=== PATIENT | female | born 2000 | race Caucasian/White ===

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

== ENCOUNTER 2020-06-13 12:24 | Emergency (ER) | payer MEDICAID, SELFPAY ==
[2020-06-13 12:34] VITALS: BP 132/86; PULSE 88; RESP 14; TEMP 36.8; O2SAT 100
--- NOTE | 2020-06-13 12:45 | DI.CT_ITS ---
EXAM: CT RENAL COLIC WO INDICATION: Right flank pain. COMPARISON: CT CT ABDOMEN PELVIS W from 08/10/2018 TECHNIQUE: CT examination was performed without contrast administration. FINDINGS: Images obtained through the lung bases are unremarkable. Visualized portions of the liver and splee n appear intact. Visualized portions of the pancreas are unremarkable. Gallbladder and bile ducts are CT normal. Abdominal aorta is of normal diameter. No significant abdominal wall hernia. No significant abdominal or pelvic adenopathy. Appendix is visualized and appears normal. There is no evidence of diverticulitis or bowel obstructi on. Adrenals appear normal bilaterally. The kidneys are normal in size and shape. There is no evidence of a renal mass, hydronephrosis, or n ephrolithiasis. No ureteral dilatation or calcification identified. Urinary bladder is Unremarkable in appearance. The digital designer structures are unremarkable as visualized. Is a small quantity free fluid in the pelvis whic h is nonspecific. IMPRESSION: Small quantity of free pelvic fluid noted, nonspecific. No urinary tract calcification or obstruction. RADIATION DOSE DELIVERED: 527.86mGy.cm Total DLP
[2020-06-13 12:53] LABS: Bilirubin Negative (Negative); Blood Trace-intact (Negative); Clarity Clear (Clear); Glucose Negative (Negative); Ketones Negative (Negative); Leukocyte Esterase Negative (Negative); Nitrite Negative (Negative); Specific Gravity 1.025 (1.005-1.025); Urobilinogen 0.2 EU/dL (Up TO 0.2); pH 8.5 (5-8)
[2020-06-13 13:05] LABS: Bacteria Rare HPF (Negative); C & S Indicated? No; Casts Negative LPF (Negative); Crystals Negative HPF (Negative); Epithelial Cells Few HPF (Negative); Mucus Negative (Negative); WBC 0-2 HPF (0-5)
--- NOTE | 2020-06-13 13:22 | ED.GENADUL_ITS ---
Discharge Plan Disposition Patient Disposition: HOME Condition: Stable Discharge Details Clinical Impression: Flank pain Primary Care Provider: None,None ED Provider: Dawna Clay Home Meds and New Rx's Prescriptions: No Action ibuprofen [Motrin IB] 200 MG tablet 200 mg PO PRN PRNRF: 0 acetaminophen [Tylenol Extra Strength] 500 MG tablet 500 mg PO PRN PRNRF: 0 biotin 5,000 mcg Tablet, Sublingual 5,000 mcg SUBLINGUAL RF: 0 Discharge Instructions Instructions: Flank Pain (ED) Additional Instructions: Follow up with primary care provider in 3-5 days. Return to ED sooner if any worsening or concerns. Increase oral fluids. Please take Tylenol or Ibuprofen with food every 4-6 hours as needed for pain and swelling. Today's CT showed little bit of fluid in your pelvis but no kidney stone. This may indicate a ruptured ovarian cyst or other etiology. Return to the ED for any worsening pain, fever, nausea vomiting diarrhea or any concerns. Stand Alone Forms: Work Release Discharge Data Discharge Date/Time-TO BE ENTERED AT DEPARTURE: 06/13/20 14:18 Medical Decision Making 19-year-old female presents to the ED with chief complaint of right flank pain which radiates around to the right lower quadrant which has been present for approximately 5 days. Associated with increased frequency of urination and dysuria. Denies any nausea vomiting diarrhea. No fever. She has been taking ibuprofen with little to no relief. FINDINGS: Images obtained through the lung bases are unremarkable. Visualized portions of the liver and spleen appear intact. Visualized portions of the pancreas are unremarkable. Gallbladder and bile ducts are CT normal. Abdominal aorta is of normal diameter. No significant abdominal wall hernia. No significant abdominal or pelvic adenopathy. Appendix is visualized and appears normal. There is no evidence of diverticulitis or bowel obstruction. Adrenals appear normal bilaterally. The kidneys are normal in size and shape. There is no evidence of a renal mass, hydronephrosis, or nephrolithiasis. No ureteral dilatation or calcification identified. Urinary bladder is Unremarkable in appearance. The sports physician structures are unremarkable as visualized. Is a small quantity free fluid in the pelvis which is nonspecific. IMPRESSION: Small quantity of free pelvic fluid noted, nonspecific. No urinary tract calcification or obstruction. Urinalysis shows trace blood 5-10 RBCs, no leukocytes no nitrites, discussed CT results with patient who verbalized understanding. Patient was given ibuprofen prior to discharge. Instructed to follow-up with PCP. Patient has no PCP, placed on care management follow-up list. This text was generated using [employer] dictation system, please disregard any oddities of phrase or misspellings. HPI General Mode of arrival: ambulatory . Date/Time Provider Initiated Documentation: 06/13/20 12:50 . Limitations to Documentation: no limitations . Information obtained by: patient . HPI Narrative: 19-year-old female presents to the ED with chief complaint of right flank pain which radiates around to the right lower quadrant which has been present for approximately 5 days. Associated with increased frequency of urination and dysuria. Denies any nausea vomiting diarrhea. No fever. She has been taking ibuprofen with little to no relief. Related Data Home Medications Medication Instructions Recorded Confirmed ibuprofen [Motrin Ib] 200 mg PO PRN PRN 02/10/13 06/13/20 acetaminophen [Tylenol Extra 500 mg PO PRN PRN 12/21/15 06/13/20 Strength] biotin 5,000 mcg SUBLINGUAL 06/13/20 Allergies Allergy/AdvReac Type Severity Reaction Status Date / Time No Known Allergies Allergy Unverified 06/13/20 12:38 General Stated Complaint: FlankPain MARIYA: 3 Review of Systems Narrative: Constitutional: Negative for weight loss, alert and oriented, well groomed, normal body habitus, appears comfortable. HEENT: Denies trauma, headaches, blurry vision, nasal discharge, sore throat, trouble swallowing. Chest: Denies chest pain, palpitations, irregular rhythm, hypertension. Respiratory: Denies Shortness of breath, cough, hemoptysis. GI: Denies nausea, vomiting, diarrhea, constipation. Positive abdominal pain : Denies rectal bleeding. Positive dysuria and flank pain Neuro: Denies dizziness, blurry vision, weakness, syncope, headache or facial numbness. Hematologic: Denies easy bruising, intolerance to heat or cold, hair loss. [facility] Social History Smoking/Tobacco Use Status: Current every day Smoking risk assessment performed?: Yes Alcohol Intake: never Drug use: Occasionally Substance use type: marijuana Do you feel safe at home: Yes Do you feel safe in your relationship?: Yes Exam Narrative Exam Narrative: Constitutional: Alert and oriented x3. Appears stated age. Normal body habitus. Head: Normocephalic, no trauma. Eyes: Pupils PERRLA, Red reflex noted, EOM's intact. Eyelids symmetrical without lesions, discharge, or swelling. ENT: Bilateral TM's WNL, External ear normal to inspection, no mastoid TTP, swelling, or erythema, Nasal turbinates WNL, no nasal discharge. Normal dentition, Posterior pharynx WNL, no exudate. Chest: RRR, Normal S1, S2, distal pulses intact. Resp: Lungs clear to auscultation bilaterally, no wheezes, rales, or rhonchi. Musculoskeletal: Normal gait, 5/5 strength to all four extremities. Skin: No suspicious rashes or lesions. Capillary refill less than 2 sec. Neurologic: Cranial nerves II-XII intact. Alert and oriented x 3. DTR's intact. Hematologic/Lymphatic: No ecchymosis, no lymphadenopathy. Course Vital Signs Vital signs: Vital Signs Temperature 36.8 C 06/13/20 12:34 Pulse 88 06/13/20 12:34 Respiratory Rate 14 06/13/20 12:34 Blood Pressure 132/86 06/13/20 12:34 Pulse Oximetry 100 06/13/20 12:34 Temperature 36.8 C 06/13/20 12:34 Pulse 88 06/13/20 12:34 Respiratory Rate 14 06/13/20 12:34 Respiratory Effort Non-Labored 06/13/20 12:37 Blood Pressure 132/86 06/13/20 12:34 Blood Pressure Position Sitting 06/13/20 12:34 Pulse Oximetry 100 06/13/20 12:34 Oxygen Delivery Method Room Air 06/13/20 12:34 Oxygen Flow Rate 0 06/13/20 12:34 Pain Level 6 06/13/20 12:34 Lab/Test Results Lab/Test Results: Laboratory Tests Range/Units 06/13/20 12:43 Urine Color (Yellow) Yellow Urine Clarity (Clear) Clear Urine pH (5-8) 8.5 H Ur Specific [place] (1.005-1.025) 1.025 Urine Protein (Negative) mg/dL Negative Urine Ketones (Negative) mg/dL Negative Urine Blood (Negative) Trace-intact H Urine Nitrite (Negative) Negative Urine Bilirubin (Negative) Negative Urine Urobilinogen (Up TO 0.2) EU/dL 0.2 Ur Leukocyte Esterase (Negative) Negative Urine RBC (0-2) HPF 5-10 H Urine WBC (0-5) HPF 0-2 Ur Epithelial Cells (Negative) HPF Few Urine Crystals (Negative) HPF Negative Urine Bacteria (Negative) HPF Rare Urine Casts (Negative) LPF Negative Urine Mucus (Negative) Negative Ur Culture Indicated? No Urine Glucose (Negative) mg/dL Negative POC- Test(urine) Negative
[2020-06-13 14:09] VITALS: BP 104/70; PULSE 70; RESP 16; O2SAT 100
--- NOTE | 2020-06-13 14:11 | NUR.NOTE ---
Nursing Note: Referral for Care Management to get PCP for patient follow up from ED. Bettye Davis
[2020-06-13] MEDS: Ibuprofen 600 MG TAB PO (14:14)
--- NOTE | 2020-06-14 16:23 | CMPROGNOTE_ITS ---
- If Service Date Differs Date of service: 06/14/20 Time of Service: 16:25 Care Management Progress Note Jacqueline is seen in the ED on 06/13/20 for flank pain. ED provider requests that CM help her obtain a follow up appointment and establish care with a PCP. A review of her chart reveals she was formerly seen at [facility]. CM contacts the [facility] and is told that Jacqueline is still a patient at their clinic. A follow up appointment is scheduled for Jacqueline with Rene Christianson DNP, [facility], on Saturday, May 15, 2020. Jacqueline has been made aware of the appointment. Her medical chart at [facility] is also updated to reflect Rene Christianson DNP, FNP-C, as her PCP.
== END 2020-06-13 14:18 | disposition home or self-care (01) ==
PROVIDERS: Emergency Provider Registered Nurse Emergency; PCP Nurse Practitioner Family
DX: M54.5 Low back pain (principal); R10.31 Right lower quadrant pain; R30.0 Dysuria
CPT/HCPCS: 81025; 99284; 74176; 81003; 81015

== ENCOUNTER 2020-08-29 14:37 | Outpatient (REF) | payer MEDICAID, SELFPAY ==
[2020-08-29 18:16] LABS: Abs Immature Grans 0.02 10^3/uL (0.0-0.06); Absolute Basophil Count 0.11 10^3/uL (0.0-0.2); Absolute Eosinophil Count 0.04 10^3/uL (0.0-0.7); Absolute Lymphocyte Count 2.22 10^3/uL (1.2-3.4); Absolute Monocyte Count 0.59 10^3/uL (0.1-0.8); Absolute Neutrophil Count 3.77 10^3/uL (1.2-6.7); Basophils % 1.6; Eosinophils % 0.6; HCT 45.8 % (36.0-46.0); HGB 15.3 g/dL (11.2-15.7); Immature Grans % 0.3; Lymphocytes % 32.9; MCH 30.9 pg (27.0-33.0); MCHC 33.4 % (32.0-36.0); MCV 92.5 fL (80-95); MPV 10.3 fL (8.0-11.0); Monocytes % 8.7; Neutrophils % 55.9; Nucleated RBC 0 %; Platelet Count 257 10^3/uL (130-400); RBC 4.95 10^6/uL (3.93-5.22); RDW 11.8 % (11.7-14.6); RDW-SD 40.4 fL; WBC 6.75 10^3/uL (4.4-10.8)
[2020-08-29 18:34] LABS: ALT 23 U/L (14-59); AST 12 U/L (15-37); Albumin 4.3 g/dL (3.4-5.0); Alkaline Phosphatase 53 U/L (46-116); Amylase 59 U/L (25-115); Anion Gap 6.5 mmol/L (3-11); BUN 8 mg/dL (7-18); Bilirubin, Total 0.6 mg/dL (0.2-1.0); CO2 27.5 mmol/L (21.0-32.0); CREATININE 0.75 mg/dL (0.55-1.02); Calcium 9.2 mg/dL (8.5-10.1); Chloride 101 mmol/L (98-107); Glucose 86 mg/dL (74-106); Lipase 70 U/L (73-393); Potassium 4.3 mmol/L (3.5-5.1); Sodium 135 mmol/L (136-145); Total Protein 7.6 g/dL (6.4-8.2)
[2020-08-31 11:28] LABS: Hepatitis C Ab w Rflx HCV PCR Negative (Negative)
[2020-09-02 09:31] LABS: HIV-1/2 Ag & Ab Screen Negative (Negative)
== END 2020-08-29 14:57 ==
LOC: NCHCN 14:37
PROVIDERS: PCP Nurse Practitioner Family; Visit Provider Nurse Practitioner Family
DX: R10.11 Right upper quadrant pain (principal); Z11.4 Encounter for screening for human immunodeficiency virus [HIV]; Z11.59 Encounter for screening for other viral diseases
CPT/HCPCS: 80053; 83690; 86803; 87389; 82150; 85025

== ENCOUNTER 2020-10-18 01:03 | Outpatient (CLI) | payer MEDICAID, SELFPAY ==
--- NOTE | 2020-10-18 | DI.US_ITS ---
EXAM: US ABDOMEN INDICATION: RUQ ABD PAIN, R10.11 COMPARISON: US US PELVIS TRANSVAGINAL from 09/28/2019 TECHNIQUE: Ultrasound abdomen performed using standard protocol FINDINGS: Abdominal ultrasound was performed according to the usual protocol. The liver is normal in size and shape. No focal hepatic lesion seen. There is no evidence of cholelithiasis or biliary dilatation. No gallbladder wall thickening or peric holecystic fluid collection. Pancreas appears intact as visualized. Spleen is unremarkable in appearance with no focal lesion. Kidneys are normal in size and shape. No renal mass, hydronephrosis, or nephrolithiasis. Abdominal aorta and IVC are of normal diameter. IMPRESSION: Negative abdominal ultrasound .
== END 2020-10-18 01:23 ==
PROVIDERS: PCP Nurse Practitioner Family; Visit Provider Nurse Practitioner Family
DX: R10.11 Right upper quadrant pain (principal)
CPT/HCPCS: 76700

== ENCOUNTER 2020-10-19 12:03 | Outpatient (CLI) | payer MEDICAID, SELFPAY ==
[2020-10-19 12:49] LABS: HCG Quant, Pregnancy 5 mIU/mL (1-3)
== END 2020-10-19 12:04 | disposition home or self-care (01) ==
LOC: LBO 12:05
PROVIDERS: PCP Nurse Practitioner Family; Visit Provider Nurse Practitioner Women's Health
DX: N92.6 Irregular menstruation, unspecified (principal)
CPT/HCPCS: 36415; 84702

== ENCOUNTER 2020-10-24 14:08 | Outpatient (CLI) | payer MEDICAID, SELFPAY ==
[2020-10-24 14:48] LABS: HCG Quant, Pregnancy 1 mIU/mL (1-3)
== END 2020-10-24 14:09 | disposition home or self-care (01) ==
LOC: LBO 14:09
PROVIDERS: PCP Nurse Practitioner Family; Visit Provider Nurse Practitioner Women's Health
DX: N92.6 Irregular menstruation, unspecified (principal); Z32.00 Encounter for pregnancy test, result unknown
CPT/HCPCS: 36415; 84702

== ENCOUNTER 2020-12-27 18:26 | Emergency (ER) | payer MEDICAID, SELFPAY ==
[2020-12-27 18:32] VITALS: BP 131/88; PULSE 108; RESP 18; TEMP 37.1; O2SAT 100
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
[2020-12-27] MEDS: Omnipaque 350 MG/ML 100 ML BTL IV (19:23)
[2020-12-27 19:24] LABS: Abs Immature Grans 0.01 10^3/uL (0.0-0.06); Absolute Basophil Count 0.07 10^3/uL (0.0-0.2); Absolute Eosinophil Count 0.09 10^3/uL (0.0-0.7); Absolute Lymphocyte Count 1.95 10^3/uL (1.2-3.4); Absolute Monocyte Count 0.59 10^3/uL (0.1-0.8); Absolute Neutrophil Count 3.64 10^3/uL (1.2-6.7); Basophils % 1.1; Eosinophils % 1.4; HCT 40.3 % (36.0-46.0); HGB 13.7 g/dL (11.2-15.7); Immature Grans % 0.2; Lymphocytes % 30.7; MCH 30.9 pg (27.0-33.0); MPV 9.7 fL (8.0-11.0); Monocytes % 9.3; Neutrophils % 57.3; Nucleated RBC 0 %; Platelet Count 216 10^3/uL (130-400); RBC 4.43 10^6/uL (3.93-5.22); RDW 11.9 % (11.7-14.6); RDW-SD 39.9 fL; WBC 6.35 10^3/uL (4.4-10.8)
[2020-12-27] MEDS: Normal Saline - Diluent 50 ML VIAL IV (19:24)
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
[2020-12-27 19:45] LABS: Lipase 41 U/L (73-393)
[2020-12-27] MEDS: Ondansetron 4 MG/2 ML VIAL IVP (19:47)
[2020-12-27] MEDS: ACETAMINOPHEN 1,000 MG/100 ML BTL 400 MG IVPB (19:47)
[2020-12-27] MEDS: Normal Saline 1,000 ML 1000 ML IV (19:47)
[2020-12-27 19:50] LABS: ALT 18 U/L (14-59); AST 12 U/L (15-37); Albumin 4.5 g/dL (3.4-5.0); Alkaline Phosphatase 47 U/L (46-116); Anion Gap 9.1 mmol/L (3-11); BUN 7 mg/dL (7-18); Bilirubin, Total 0.6 mg/dL (0.2-1.0); CO2 26.9 mmol/L (21.0-32.0); CREATININE 0.9 mg/dL (0.55-1.02); Calcium 8.9 mg/dL (8.5-10.1); Chloride 104 mmol/L (98-107); Glucose 92 mg/dL (74-106); Potassium 3.3 mmol/L (3.5-5.1); Sodium 140 mmol/L (136-145); Total Protein 7.8 g/dL (6.4-8.2)
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
== END 2020-12-27 20:20 | disposition home or self-care (01) ==
PROVIDERS: Emergency Provider Physician Assistant; PCP Nurse Practitioner Family
DX: R10.30 Lower abdominal pain, unspecified (principal); R07.89 Other chest pain; T14.8XXA Other injury of unspecified body region, initial encounter; V43.52XA Car driver injured in collision with other type car in traffic accident, initial encounter; W22.11XA Striking against or struck by driver side automobile airbag, initial encounter
CPT/HCPCS: 36415; 74177; 80053; 81025; 83690; 96374; 96375; 99285; 70450; 71260; 72125; 83735; 85025; 99284; J0131; J2405; J3490

== ENCOUNTER 2021-06-05 14:17 | Emergency (ER) | payer MEDICAID, SELFPAY ==
[2021-06-05] VITALS (15 sets, daily range): BP systolic 118–123; BP diastolic 62–74; PULSE 92–120; RESP 15–30; TEMP 36.6; O2SAT 97–100
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
[2021-06-05 14:37] LABS: Abs Immature Grans 0.02 10^3/uL (0.0-0.06); Absolute Basophil Count 0.13 10^3/uL (0.0-0.2); Absolute Eosinophil Count 0.14 10^3/uL (0.0-0.7); Absolute Lymphocyte Count 4.19 10^3/uL (1.2-3.4); Absolute Monocyte Count 0.64 10^3/uL (0.1-0.8); Absolute Neutrophil Count 4.08 10^3/uL (1.2-6.7); Basophils % 1.4; Eosinophils % 1.5; HCT 37.6 % (36.0-46.0); HGB 12.5 g/dL (11.2-15.7); Immature Grans % 0.2; Lymphocytes % 45.5; MCH 30.5 pg (27.0-33.0); MCHC 33.2 % (32.0-36.0); MCV 91.7 fL (80-95); MPV 9.8 fL (8.0-11.0); Neutrophils % 44.4; Nucleated RBC 0 %; Platelet Count 302 10^3/uL (130-400); RDW-SD 40.6 fL
[2021-06-05] MEDS: Omnipaque 350 MG/ML 100 ML BTL IJ (14:44)
[2021-06-05] MEDS: Normal Saline - Diluent 50 ML VIAL IV (14:44)
--- NOTE | 2021-06-05 14:45 | RT.EKG_ITS ---
APPROVED REPORT Exam: Resting ECG Reason for Exam: hypokalemia Patient Location: E HR:102 bpm ECG Measurements Heart Rate 102 AXIS NV 127 P 73 QRSd 86 QRS 19 QT 340 T 50 QTc 442 Conclusion Sinus tachycardia...rate> 99 Atrial premature complex...SV complex w/ short R-R interval Probable left atrial enlargement...P >50mS, <-0.10mV V1
[2021-06-05 14:47] LABS: INR 1.1 (0.9-1.1)
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
[2021-06-05 14:49] LABS: ALT 52 U/L (14-59); AST 53 U/L (15-37); Albumin 3.8 g/dL (3.4-5.0); Alkaline Phosphatase 46 U/L (46-116); Anion Gap 12.3 mmol/L (3-11); BUN 8 mg/dL (7-18); Bilirubin, Total 0.4 mg/dL (0.2-1.0); CO2 24.7 mmol/L (21.0-32.0); Calcium 8.5 mg/dL (8.5-10.1); Chloride 106 mmol/L (98-107); Glucose 128 mg/dL (74-106); Sodium 143 mmol/L (136-145); Total Protein 7.1 g/dL (6.4-8.2)
[2021-06-05 14:50] LABS: Potassium 2.8 mmol/L (3.5-5.1)
--- NOTE | 2021-06-05 14:50 | DI.CT_ITS ---
Exam(s) CT CHEST/ABD/PEL W EXAM: CT CHEST/ABD/PEL W CLINICAL HISTORY: trauma, b/l LQ pain. TECHNIQUE: Imaging Protocol: Axial computed tomography images with coronal and sagittal reformatted images were created and reviewed CONTRAST MATERIAL: Intravenous: Omnipaque 350 Contrast volume:100 ml Oral: None COMPARISON: CT CT CHEST/ABD/PEL W from 12/27/2020 FINDINGS: CHEST: LUNGS: No evidence of lung contusion or pneumothorax nor pleural effusion.. MEDIASTINUM: No evidence of significant mediastinal hematoma. Visualized thyroid unremarkable. CARDIAC: Heart size is normal. There is no pericardial effusion.Thoracic aorta is intact. OSSEOUS: Again noted are adjacent here subacute appearing fractures of the 6th and 7th ribs on the ri ght side, not yet completely healed but previously present on the December 2020 study. No acute fractures evident. ABDOMEN: There is no evidence of mesenteric nor bowel wall hematoma. There is no ascites in the upper abdomen . LIVER: No evidence of a patent laceration or Dinorah hepatic fluid. No ominous a patent lesions. No di latation of intrahepatic ducts. GALLBLADDER/BILIARY: No obvious gallbladder pathology. CBD is not dilated. PANCREAS: No evidence of pancreatic mass nor dilatation of the pancreatic duct. SPLEEN: Spleen is intact. No laceration evident. No perisplenic fluid. Spleen size is normal. Spl enic and portal veins are patent. ADRENALS: There are no significant adrenal masses. KIDNEYS: Kidneys are intact with no evidence of laceration or subcapsular hematomas.. No calculi nor hydronephrosis. No cyst or solid renal masses. ABDOMINAL AORTA: Abdominal aorta is intact. No surrounding hematoma. No aneurysm. LYMPH NODES: There is no retroperitoneal nor paraaortic adenopathy. ABDOMINAL WALL: Umbilical ornament. No evidence of anterior abdominal hernia knee. No inguinal gaby ia. No prominent bruising GI: There is no evidence of bowel obstruction. PELVIS: LYMPH NODES: There is no intrapelvic nor inguinal adenopathy. GI: No evidence of appendicitis.No evidence of sigmoid diverticulitis. URINARY BLADDER: Appears intact REPRODUCTIVE: Uterus size is normal. Ovaries are difficult to locate among the unopacified numerous adjacent bowel loops. There is a moderate amount of fluid in the cul-de-sac noted. This may be fema le physiologic. OSSEOUS: Femur fracture right side noted. Hip is intact. No pelvic fractures. No diastasis of the sacroiliac joints and symphysis pubis. No sacral fractures. No new rib fractures. No compression f ractures. No listhesis. IMPRESSION: 1. Main finding here is in the peripheral aspect field of view and this is a mildly displaced right f emur fracture. No other acute fractures identified. Nonacute right 6th and 7th rib fractures are no oscar which were evident on the December 2020 CT scan. 2. There is a moderate amount of free fluid in the dependent aspect of the pelvis which may be female physiologic, given that there does not appear to be significant organ trauma and no evidence of obvi ous bowel wall nor mesenteric hematoma. 3. No significant acute intrathoracic trauma sequelae. RADIATION DOSE DELIVERED: 791.43mGy.cm Total DLP DATA REPOSITORY: All CT scans at this facility are submitted to the National Radiology Data Registry (NRDR) Dose Index Registry (DIR) with the [employer] (ACR). RADIATION OPTIMIZATION: All CT scans at this facility use at least one of these dose optimization te chniques: automated exposure control; mA and/or kV adjustment per patient size (includes targeted exa ms where dose is matched to clinical indication); or iterative reconstruction.
[2021-06-05] MEDS: Normal Saline 1,000 ML 1000 ML IV (15:36)
[2021-06-05] MEDS: POTASSIUM CHLORIDE 20 MEQ/100 ML BAG 50 MEQ IVPB (15:37)
[2021-06-05] MEDS: fentaNYL 100 MCG/2 ML VIAL 60 MCG IVP (16:33)
== END 2021-06-05 16:43 | disposition short-term general hospital (02) ==
LOC: ER 16:24
PROVIDERS: Emergency Provider Student in an Organized Health Care Education/Training Program; PCP Nurse Practitioner Family
DX: S72.391A Other fracture of shaft of right femur, initial encounter for closed fracture (principal); R10.32 Left lower quadrant pain; R10.31 Right lower quadrant pain; V89.2XXA Person injured in unspecified motor-vehicle accident, traffic, initial encounter; E87.6 Hypokalemia
CPT/HCPCS: 73552; 74177; 80053; 86850; 86900; 86901; 93005; 96361; 96365; 96366; 96375; 99285; 70450; 71260; 72125; 83735; 85025; 85610; 93010; J3010; J3480; J3490

== ENCOUNTER 2021-10-13 01:42 | Outpatient (CLI) | payer MEDICAID, SELFPAY ==
--- NOTE | 2021-10-13 | DI.US_ITS ---
Exam(s) US ABDOMEN EXAM: US ABDOMEN CLINICAL HISTORY: HEPATIC HEMANGIOMA D18.3, TECHNIQUE: Ultrasound of complete upper abdomen performed using standard protocol. COMPARISON: US US ABDOMEN from 10/18/2020 FINDINGS: There is no ascites evident. LIVER: There are no hepatic lesions evident nor obvious dilatation of intrahepatic ducts. GALLBLADDER/BILIARY: There are no gallstones. No gallbladder wall edema nor pericholecystic fluid. The common hepatic duct isnot dilated, measuring 3-4mm at the level of lexii hepatis. PANCREAS: There is no evidence of pancreatic mass nor dilatation of the pancreatic duct. SPLEEN: The spleen is not enlarged and there are no intrasplenic lesions evident. KIDNEYS:Kidneys exhibit normal size with no evidence of solid mass, calculus, nor hydronephrosis. No cortical cysts evident. ABDOMINAL AORTA: There is no evidence of abdominal aortic aneurysm. IVC: Normal diameter where visualized. IMPRESSION: 1. No evidence of cholelithiasis nor dilatation of the biliary tree. 2. No other significant ultrasound findings in the upper abdomen. 3. There is no ascites. DATA REPOSITORY:
--- NOTE | 2021-10-13 | DI.CT_ITS ---
Exam(s) CT CHEST WO EXAM: CT CHEST WO CLINICAL HISTORY: PULMONARY NODULE R91.1. TECHNIQUE: Multi planar reconstructions were performed. CONTRAST MATERIAL: None COMPARISON: CT CT CHEST/ABD/PEL W from 06/05/2021 FINDINGS: CHEST: LUNGS: No infiltrates nor pleural effusions. No significant right lung nodules. There are adjacent healing fractures of the right 5th, 6th, and 7th ribs, nondisplaced and almost completely healed. Th ere are no acute fractures evident. In the opposite-left lung there is a posteriorly located subtle pleural based infiltrate measuring 6 x 3 millimeter, this in the superior segment of the left lower lobe and unchanged from the 06/05/2021 study and not associated with overlying rib destruction nor pleural effusion. There are no addition al similar findings in either lung. There are no significant focal findings in the trachea and lamberto tem bronchi. MEDIASTINUM: There is no obvious hilar adenopathy nor subcarinal adenopathy. There is density in the anterior mediastinal fat retrosternal region noted which is probably remnant thymus.. No evidence o f acute sternal fracture. There is an osteophytic density measuring 5 x 4 millimeter is behind the u pper right sternum, unchanged. This does not appear post trauma. Visualized thyroid unremarkable.No obvious axillary adenopathy CARDIAC: Heart size is normal. There is no pericardial effusion.Caliber of the thoracic aorta is wit hin normal limits. VISUALIZED UPPER ABDOMEN:No significant findings. No adrenal masses. No splenomegaly. OSSEOUS: No significant osseous lesions.Healing right-sided rib fractures as described above.. IMPRESSION: 1. Compared to the prior CT scan of 06/05/2021 there has been further callus formation-healing in the nondisplaced fractures of the right 5th, 6th, and 7th ribs. There are no new fractures identified 2. There is an unchanged pleural based 6 x 3 millimeter noncalcified density posteriorly over the sup erior segment of the left lower lobe. There is no associated overlying rib destruction or pleural ef fusion or other significant pulmonary parenchymal findings. 3. Anterior mediastinal fat density noted which is probably remnant thymus in this age group. RADIATION DOSE DELIVERED: 410.22mGy.cm Total DLP DATA REPOSITORY: All CT scans at this facility are submitted to the National Radiology Data Registry (NRDR) Dose Index Registry (DIR) with the [employer] (ACR). RADIATION OPTIMIZATION: All CT scans at this facility use at least one of these dose optimization te chniques: automated exposure control; mA and/or kV adjustment per patient size (includes targeted exa ms where dose is matched to clinical indication); or iterative reconstruction.
== END 2021-10-13 02:02 ==
PROVIDERS: PCP Nurse Practitioner Family; Visit Provider Nurse Practitioner
DX: R91.1 Solitary pulmonary nodule (principal); D18.03 Hemangioma of intra-abdominal structures; R91.8 Other nonspecific abnormal finding of lung field
CPT/HCPCS: 71250; 76700

== ENCOUNTER 2022-07-03 16:06 | Outpatient (CLI) | payer MEDICAID, SELFPAY ==
[2022-07-05 17:11] LABS: Chlamydia Result Negative (Negative); GC Result Negative (Negative)
== END 2022-07-03 16:07 | disposition home or self-care (01) ==
LOC: LBO 16:07
PROVIDERS: Visit Provider Obstetrics & Gynecology Gynecology
DX: L65.9 Nonscarring hair loss, unspecified (principal); Z11.3 Encounter for screening for infections with a predominantly sexual mode of transmission
CPT/HCPCS: 36415; 87491; 87591; 84443

== ENCOUNTER 2022-08-23 15:12 | Outpatient (REF) | payer MEDICAID, SELFPAY ==
--- NOTE | 2022-08-23 15:00 | PAPFT_PTH ---
PATIENT: Jacqueline Cheema LOC: [facility] U#:[id number] AGE/SX: 21/F ROOM: RE08/23/[address]: Marilia Stewart : 2000 BED: DIS: 08/23/2022 SPEC #: [id number] RECD: 08/24/22 12:47 STATUS: SAURAV REFaustina #: [id number] JANIE: 08/23/22 15:[address]: Marilia Stewart DEPT: [facility] Cytology RECD BY: Juanita Peraza Tissues: 1 - CX/ENDOCX FOR PAP SMEARS Procedures: PAP THIN PREP/UVM Screening Comments: [id number]
== END 2022-08-23 15:13 | disposition home or self-care (01) ==
LOC: LBN 15:12
PROVIDERS: Visit Provider Obstetrics & Gynecology Gynecology
DX: Z11.51 Encounter for screening for human papillomavirus (HPV) (principal); R87.610 Atypical squamous cells of undetermined significance on cytologic smear of cervix (ASC-US)
CPT/HCPCS: 88142

== ENCOUNTER 2022-09-26 11:59 | Outpatient (CLI) | payer MEDICAID, SELFPAY ==
[2022-09-26 11:20] LABS: HCG Quant, Pregnancy 652 mIU/mL (1-3)
== END 2022-09-26 12:00 | disposition home or self-care (01) ==
PROVIDERS: Visit Provider Obstetrics & Gynecology
DX: O26.851 Spotting complicating pregnancy, first trimester (principal); Z3A.01 Less than 8 weeks gestation of pregnancy
CPT/HCPCS: 36415; 84702

== ENCOUNTER 2022-09-28 15:25 | Outpatient (CLI) | payer MEDICAID, SELFPAY ==
[2022-09-28 15:41] LABS: HCG Quant, Pregnancy 611 mIU/mL (1-3)
== END 2022-09-28 15:26 | disposition home or self-care (01) ==
LOC: LBO 15:25
PROVIDERS: Visit Provider Obstetrics & Gynecology
DX: O26.851 Spotting complicating pregnancy, first trimester (principal)
CPT/HCPCS: 36415; 84702

== ENCOUNTER 2022-09-30 10:23 | Emergency (ER) | payer MEDICAID, SELFPAY ==
[2022-09-30] MEDS: ACETAMINOPHEN 1,000 MG/100 ML BTL 400 MG (11:15)
[2022-09-30] MEDS: Normal Saline 1,000 ML 1000 ML IV (11:15)
[2022-09-30 15:42] LABS: Bilirubin Negative (Negative); Blood Moderate (Negative); Clarity Cloudy (Clear); Glucose Negative (Negative); Ketones Negative (Negative); Leukocyte Esterase Negative (Negative); Nitrite Negative (Negative); Urobilinogen 0.2 mg/dL (Up to 0.2)
[2022-09-30 15:45] LABS: Bacteria Negative HPF (Negative); C & S Indicated? No; Casts Negative LPF (Negative); Crystals Negative HPF (Negative); Epithelial Cells Negative HPF (Negative); Mucus Negative (Negative); RBC >50 HPF (0-2); WBC Negative HPF (0-5)
[2022-09-30 15:48] LABS: AST 19 U/L (15-37); Albumin 4.1 g/dL (3.4-5.0); Alkaline Phosphatase 47 U/L (46-116); Anion Gap 10.7 mmol/L (3-11); BUN 8 mg/dL (7-18); Bilirubin, Total 0.8 mg/dL (0.2-1.0); CO2 26.3 mmol/L (21.0-32.0); CREATININE 0.7 mg/dL (0.55-1.02); Calcium 9.3 mg/dL (8.5-10.1); Chloride 102 mmol/L (98-107); Estimated GFR 125.33 (mL/min/1.73m2); Glucose 93 mg/dL (74-106); Potassium 3.8 mmol/L (3.5-5.1); Sodium 139 mmol/L (136-145); Total Protein 7.5 g/dL (6.4-8.2)
[2022-09-30 15:49] LABS: ALT 26 U/L (14-59); HCG Quant, Pregnancy 664 mIU/mL (1-3)
[2022-09-30 15:50] LABS: Absolute Basophil Count 0.07 10^3/uL (0.0-0.2); Absolute Eosinophil Count 0.09 10^3/uL (0.0-0.7); Absolute Lymphocyte Count 1.63 10^3/uL (1.2-3.4); Absolute Neutrophil Count 2.65 10^3/uL (1.2-6.7); Basophils % 1.4; Eosinophils % 1.8; HCT 39.9 % (36.0-46.0); HGB 13.3 g/dL (11.2-15.7); Lymphocytes % 32.3; MCH 30.2 pg (27.0-33.0); MCHC 33.3 % (32.0-36.0); MCV 91 fL (80-95); MPV 10.1 fL (8.0-11.0); Monocytes % 11.9; Neutrophils % 52.4; Platelet Count 236 10^3/uL (130-400); RDW 11.9 % (11.7-14.6); RDW-SD 39.7 fL; WBC 5.05 10^3/uL (4.4-10.8)
[2022-09-30 15:51] LABS: Immature Grans % 0.2
== END 2022-09-30 14:42 ==
LOC: ER 13:40
PROVIDERS: Emergency Provider Emergency Medicine
DX: O20.8 Other hemorrhage in early pregnancy (principal); R10.32 Left lower quadrant pain; R10.31 Right lower quadrant pain
CPT/HCPCS: 80053; 81025; 86850; 86900; 86901; 96361; 96365; 99284; 81003; 81015; 84702; 85025; 99283; J0131

== ENCOUNTER 2022-10-01 01:39 | Outpatient (CLI) | payer MEDICAID, SELFPAY ==
--- NOTE | 2022-10-01 09:00 | DI.US_ITS ---
Exam(s) US OB 1ST TRIMESTER EXAM: US OB 1ST TRIMESTER CLINICAL HISTORY: abnl in first trimester, O26.91, possible ectopic. TECHNIQUE: Transabdominal and transvaginal pelvic ultrasound was performed using standard protocol. COMPARISON: US US PELVIS TRANSVAGINAL from 09/28/2019 FINDINGS: UTERUS: Position: Anteverted. Size: 7.6 long by 3.6 AP by 5.0 transverse cm Endometrium: 0.6 cm. Normal for patient's menstrual status. No evidence of an intrauterine gestationa l sac is present. Myometrium: Unremarkable. Cervix: Unremarkable. OVARIES: Right: 3 x 2.5 x 2.5 cm Cyst or mass: No suspicious cystic or solid masses. Left: 3.5 x 3.1 x 2.1 cm Cyst or mass: No suspicious cystic or solid masses. There are 3 simple cysts seen on the left ovary. The largest measures 2.4 x 2 x 2 cm. DOPPLER: Color: Symmetric and uniform flow to both ovaries. CUL-DE-SAC: Free fluid: There is a moderate amount of free fluid in the pelvis. Other: In the right adnexa, there is a 3.1 x 2 x 4 cm ???mass???. The findings are suspicious for an enlarged fallopian tube and an ectopic . IMPRESSION: 1. No intrauterine is identified. 2. 3.1 x 2 x 4 cm right adnexal mass. The findings are suspicious for an ectopic , probably tubal. 3. Moderate amount of free fluid in the pelvis. 4. Findings were discussed with Dr. Morales on 10/01/2022. DATA REPOSITORY:
== END 2022-10-01 01:59 ==
PROVIDERS: Visit Provider Obstetrics & Gynecology
DX: N83.292 Other ovarian cyst, left side (principal); R19.09 Other intra-abdominal and pelvic swelling, mass and lump; N83.8 Other noninflammatory disorders of ovary, fallopian tube and broad ligament
CPT/HCPCS: 76801

== ENCOUNTER 2022-10-01 12:13 | Outpatient (CLI) | payer MEDICAID, SELFPAY ==
[2022-10-01 11:56] LABS: Abs Immature Grans 0.01 10^3/uL (0.0-0.06); Absolute Basophil Count 0.05 10^3/uL (0.0-0.2); Absolute Eosinophil Count 0.05 10^3/uL (0.0-0.7); Absolute Lymphocyte Count 1.22 10^3/uL (1.2-3.4); Absolute Monocyte Count 0.58 10^3/uL (0.1-0.8); Absolute Neutrophil Count 2.88 10^3/uL (1.2-6.7); HCT 36.3 % (36.0-46.0); HGB 12.3 g/dL (11.2-15.7); Immature Grans % 0.2; Lymphocytes % 25.5; MCH 30.9 pg (27.0-33.0); MCHC 33.9 % (32.0-36.0); MCV 91 fL (80-95); MPV 9.8 fL (8.0-11.0); Monocytes % 12.1; Neutrophils % 60.2; Platelet Count 218 10^3/uL (130-400); RBC 3.98 10^6/uL (3.93-5.22); RDW 11.9 % (11.7-14.6); RDW-SD 40.1 fL; WBC 4.79 10^3/uL (4.4-10.8)
[2022-10-01 12:21] LABS: ALT 23 U/L (14-59); AST 11 U/L (15-37); Alkaline Phosphatase 46 U/L (46-116); Anion Gap 7.2 mmol/L (3-11); BUN 8 mg/dL (7-18); Bilirubin, Total 0.5 mg/dL (0.2-1.0); CO2 28.8 mmol/L (21.0-32.0); CREATININE 0.7 mg/dL (0.55-1.02); Calcium 9.1 mg/dL (8.5-10.1); Chloride 105 mmol/L (98-107); Estimated GFR 125.33 (mL/min/1.73m2); Glucose 102 mg/dL (74-106); HCG Quant, Pregnancy 995 mIU/mL (1-3); Potassium 4.1 mmol/L (3.5-5.1); Sodium 141 mmol/L (136-145); Total Protein 7.1 g/dL (6.4-8.2)
== END 2022-10-01 12:14 | disposition home or self-care (01) ==
LOC: LBO 12:14
PROVIDERS: Visit Provider Obstetrics & Gynecology
DX: O26.91 Pregnancy related conditions, unspecified, first trimester (principal)
CPT/HCPCS: 36415; 80053; 84702; 85025

== ENCOUNTER 2022-10-01 14:41 | Day surgery (SDC) | payer MEDICAID, SELFPAY ==
[2022-10-01] VITALS (9 sets, daily range): BP systolic 101–140; BP diastolic 54–80; PULSE 73–99; RESP 15–18; TEMP 36.5–36.8; O2SAT 99–100; BMI 26.6
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
[2022-10-01] MEDS: Lactated Ringers 1,000 ML 125 ML IV (15:07)
[2022-10-01 15:21] LABS: Abs Immature Grans 0.01 10^3/uL (0.0-0.06); Absolute Basophil Count 0.06 10^3/uL (0.0-0.2); Absolute Eosinophil Count 0.07 10^3/uL (0.0-0.7); Absolute Neutrophil Count 3.17 10^3/uL (1.2-6.7); Eosinophils % 1.2; HCT 37.8 % (36.0-46.0); HGB 12.6 g/dL (11.2-15.7); Immature Grans % 0.2; Lymphocytes % 29.3; MCH 30.2 pg (27.0-33.0); MCHC 33.3 % (32.0-36.0); MCV 91 fL (80-95); MPV 9.6 fL (8.0-11.0); Monocytes % 13.8; Neutrophils % 54.5; Platelet Count 227 10^3/uL (130-400); RBC 4.17 10^6/uL (3.93-5.22); RDW 11.9 % (11.7-14.6); RDW-SD 39.3 fL; WBC 5.81 10^3/uL (4.4-10.8)
[2022-10-01] MEDS: Bupivacaine 0.25% Pres-Free 30 ML VIAL (16:21)
--- NOTE | 2022-10-01 16:26 | FALL_PTH ---
PATIENT: Jacqueline Cheema LOC: [facility] U#:[id number] AGE/SX: 22/F ROOM: RE10/01/[address]: María Morales DO : 2000 BED: DIS: 10/01/2022 SPEC #: [id number] RECD: 10/01/22 17:21 STATUS: SAURAV REQ #: [id number] JANIE: 10/01/22 16:[address]: María Morales DEPT: Surgical Specimen RECD BY: Juanita Peraza ENTERED: 10/01/22 17:23 SP TYPE: Fall OTHR DR: Unknown,Unknown Tissues: 1 - FALLOPIAN TUBE (ECTOPIC) Procedures: GROSS AND MICRO LEVEL 4 Comments: [id number]
--- NOTE | 2022-10-01 16:47 | ROE_ITS ---
Date of service: 10/01/22 Time of Service: 16:47 Operative Note Operative Note DATE OF PROCEDURE: 10/01/22 PRE-OP DIAGNOSIS: Suspected ectopic POST-OP DIAGNOSIS: same Hemoperitoneum with right ectopic . Endometriosis in the cul-de-sac, anterior and posterior. Adhesions of the omentum to the left ovary. PROCEDURE: Operative laparoscopy with right salpingectomy for ectopic SURGEON: María Morales SUPERVISOR INSPECTION ROOM: Shaina Alvarez ANESTHESIA TYPE: Local By Surgeon and General LMA/ETT Refer to Anesthesia Record ESTIMATED BLOOD LOSS: 100 PATHOLOGY: other (Right fallopian tube with ectopic) COMPLICATIONS: None Patient was transported to: PACU Patient's condition: stable Indications: Abnormally rising quantitative hCG. Ultrasound consistent with right ectopic , and moderate fluid in the pelvis. Findings: Uterus with adhesions to the anterior abdominal wall. Endometriosis implants in the posterior cul-de-sac. Dilated right fallopian tube with ectopic and proximal obstruction. Normal-appearing left fallopian tube. 2 cm left ovarian cyst. Moderate hemoperitoneum, approximately 200 cc. Procedure Description: After full informed consent was obtained and IV access had been established patient was taken the operating suite. She was placed in the dorsal supine position and endotracheal intubation performed for the administration of general anesthesia with ease. She was then placed in the modified dorsolithotomy position prepped and draped in the usual sterile fashion. Pneumatic compression stockings were placed for DVT prophylaxis. Yu catheter was inserted for continuous bladder drainage. Vaginal preparation was performed. A speculum was inserted into the posterior vaginal vault and a single-tooth tenaculum used to grasp the cervix and Hulka uterine manipulator placed within. Tenaculum and speculum were then removed and attention was returned to the abdomen. After infiltration with quarter percent Marcaine at the umbilical incision vertical umbilical incision was made. The anterior narinder wall was elevated with sharp towel clips and a varies needle used to insert directly into the abdomen. Pneumoperitoneum created with CO2 gas to a maximum pressure of 15 mmHg. At this point a 12 mm Optiview trocar site was placed under direct visualization into the abdomen. On inspection there was noted to be a moderate hemoperitoneum and a left ovarian cyst, along with a markedly dilated right fallopian tube consistent with ectopic. A second and third right and left lower quadrant trocar site were placed after infiltration with quarter percent Marcaine. The uterus was then elevated and the abdomen was inspected. There is noted to be adhesions of the lower segment to the anterior abdominal wall and endometriosis implants in the posterior cul-de-sac. There were thin filmy adhesions of the omentum to the left adnexa. The right adnexa was free however markedly dilated. This tube was then elevated and cautery transected for removal. Decision was made to remove the fallopian tube in its entirety due to the very narrow proximal obstruction and marked dilation of the tube itself. Left fallopian tube appears normal. At this point the abdomen was irrigated with copious amounts of normal saline and under low pressure at the excisional site visualized and found to be hemostatic. After irrigation with copious amounts of normal saline the procedure was then terminated. All ports were removed from the abdomen after pneumoperitoneum was released. The fascial incision was closed using 0 Vicryl suture in a simple interrupted fashion. Skin edge was reapproximated with 4-0 undyed Monocryl and Steri-Strips and sterile dressings were placed. Hulka manipulator and Yu catheter were removed. Patient returned to the dorsal supine position and woke from anesthesia with ease. She was taken the recovery room in stable condition. EBL: 200 ml including hemoperitoneum Complications: None apparent Pathology: Right fallopian tube for examination Fluids: Crystalloid per anesthesia
--- NOTE | 2022-10-01 17:30 | W.ANESPOSTOP ---
Postoperative Evaluation Date, Time and Location Date Performed: 10/01/22 Time Performed: 17:30 Patient Location: PACU Vital Signs Most Recent Imported Vital Signs: Most Recent Vital Signs Temp Pulse Resp BP Pulse Ox 36.5 C 86 16 108/67 100 10/01/22 17:10 10/01/22 17:10 10/01/22 17:10 10/01/22 17:10 10/01/22 17:10 Pain Score Most Recent Pain Score: Most Recent Pain Score Pain Level 0 10/01/22 17:10 Assessment Mental Status: Arousable with meaningful communication Airway and Respiratory Function: Patent airway with normal (patient baseline) respiratory exam Cardiovascular Function: Hemodynamically Stable Hydration Status: Adequately Hydrated Nausea & Vomiting: No Nausea or Vomiting Pain: Pain is tolerable per patient Peripheral Nerve Block: Patient did not receive a nerve block
== END 2022-10-01 19:09 | disposition home or self-care (01) ==
PROVIDERS: Visit Provider Obstetrics & Gynecology
PROC: (CPT 58661; principal; 2022-10-01 14:30)
DX: O00.101 Right tubal pregnancy without intrauterine pregnancy; K66.1 Hemoperitoneum; N80.319 Endometriosis of the anterior cul-de-sac, unspecified depth; N80.329 Endometriosis of the posterior cul-de-sac, unspecified depth; N83.202 Unspecified ovarian cyst, left side
CPT/HCPCS: 59151; 86850; 86900; 86901; 88305; 85025; J0131; J1100; J1885; J2250; J2405; J2704; J3475

== ENCOUNTER 2022-11-20 12:21 | Outpatient (REF) | payer MEDICAID, SELFPAY ==
--- NOTE | 2022-11-20 11:40 | CER_PTH ---
PATIENT: Jacqueline Cheema LOC: [facility] U#:[id number] AGE/SX: 22/F ROOM: RE11/20/[address]: María Morales DO : 2000 BED: DIS: 11/20/2022 SPEC #: [id number] RECD: 11/20/22 17:24 STATUS: SAURAV REQ #: [id number] JANIE: 11/20/22 11:[address]: María Morales DEPT: Surgical Specimen RECD BY: Juanita Peraza Tissues: 1 - CERVICAL BIOPSY 2 - ENDOCERVICAL BX/CURRETTE Procedures: GROSS AND MICRO LEVEL 4 Comments: [id number]
== END 2022-11-20 12:22 | disposition home or self-care (01) ==
LOC: LBN 12:21
PROVIDERS: Visit Provider Obstetrics & Gynecology
DX: N87.1 Moderate cervical dysplasia (principal); R87.613 High grade squamous intraepithelial lesion on cytologic smear of cervix (HGSIL)
CPT/HCPCS: 88305

== ENCOUNTER 2023-03-20 17:26 | Outpatient (CLI) | payer MEDICAID, SELFPAY ==
[2023-03-20 15:56] LABS: HCG Quant, Pregnancy 135 mIU/mL (1-3)
== END 2023-03-20 17:27 | disposition home or self-care (01) ==
LOC: LBO 17:27
PROVIDERS: Visit Provider Obstetrics & Gynecology
DX: Z32.01 Encounter for pregnancy test, result positive (principal)
CPT/HCPCS: 36415; 84702

== ENCOUNTER 2023-03-22 17:10 | Outpatient (CLI) | payer MEDICAID, SELFPAY ==
[2023-03-22 14:04] LABS: HCG Quant, Pregnancy 283 mIU/mL (1-3)
== END 2023-03-22 17:11 | disposition home or self-care (01) ==
PROVIDERS: Visit Provider Obstetrics & Gynecology
DX: Z32.01 Encounter for pregnancy test, result positive (principal); Z90.79 Acquired absence of other genital organ(s)
CPT/HCPCS: 36415; 84702

== ENCOUNTER 2023-05-01 12:22 | Emergency (ER) | payer MEDICAID, SELFPAY ==
[2023-05-01 12:23] VITALS: BP 124/58; PULSE 110; RESP 16; TEMP 37.2; O2SAT 98
--- NOTE | 2023-05-01 12:32 | DI.US_ITS ---
Exam(s) US OB 1ST TRIMESTER EXAM: US OB 1ST TRIMESTER CLINICAL HISTORY: vaginal bleeding. COMPARISON: US US OB 1ST TRIMESTER from 10/01/2022 TECHNIQUE: Transabdominal Transvaginal first trimester obstetrical ultrasound performed. FINDINGS: There is an intrauterine gestational sac. There is a pole which would correspond to 5 weeks 6 weeks gestation. No heart rate is identified. The patient had and limited obstetrical ultraso und on 04/17/2023 which showed a 6 week gestation. There is a small amount of fluid seen in the cul-d e-sac. Uterus: 8.8 long by 5.4 AP by 6.5 transverse cm. Right ovary: 2.6 x 1.1 x 1.7 cm. Left ovary: 3.5 x 2.4 x 3.1 cm. There are 2 complex left ovarian cysts. The larger measures 1.8 x 1 .5 x 1.8 cm. IMPRESSION: 1. Findings most consistent with demise. 2. Findings were discussed with the emergency department on the date of the examination. DATA REPOSITORY:
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
[2023-05-01 13:03] LABS: Abs Immature Grans 0.01 10^3/uL (0.0-0.06); Absolute Basophil Count 0.07 10^3/uL (0.0-0.2); Absolute Eosinophil Count 0.09 10^3/uL (0.0-0.7); Absolute Lymphocyte Count 2.32 10^3/uL (1.2-3.4); Absolute Monocyte Count 0.54 10^3/uL (0.1-0.8); Absolute Neutrophil Count 4.01 10^3/uL (1.2-6.7); Eosinophils % 1.3; HCT 43.1 % (36.0-46.0); HGB 14.9 g/dL (11.2-15.7); Immature Grans % 0.1; MCH 30.7 pg (27.0-33.0); MCHC 34.6 % (32.0-36.0); MCV 89 fL (80-95); MPV 9.5 fL (8.0-11.0); Monocytes % 7.7; Neutrophils % 56.9; Platelet Count 259 10^3/uL (130-400); RBC 4.85 10^6/uL (3.93-5.22); RDW 11.9 % (11.7-14.6); RDW-SD 38.8 fL; WBC 7.04 10^3/uL (4.4-10.8)
[2023-05-01 14:10] LABS: HCG Quant, Pregnancy 13266 mIU/mL (1-3)
[2023-05-01 14:48] VITALS: BP 128/65; PULSE 97; TEMP 37.1; O2SAT 100
== END 2023-05-01 15:25 | disposition home or self-care (01) ==
PROVIDERS: Emergency Provider Student in an Organized Health Care Education/Training Program
DX: O03.9 Complete or unspecified spontaneous abortion without complication
CPT/HCPCS: 86850; 86900; 86901; 99284; 76801; 84702; 85025

== ENCOUNTER 2023-05-07 12:57 | Outpatient (CLI) | payer MEDICAID, SELFPAY ==
[2023-05-07 12:00] LABS: HCG Quant, Pregnancy 286 mIU/mL (1-3)
== END 2023-05-07 12:58 | disposition home or self-care (01) ==
LOC: LBO 12:57
PROVIDERS: Visit Provider Obstetrics & Gynecology
DX: O03.9 Complete or unspecified spontaneous abortion without complication (principal)
CPT/HCPCS: 36415; 84702

== ENCOUNTER 2023-12-26 13:41 | Outpatient (REF) | payer MEDICAID, SELFPAY ==
--- NOTE | 2023-12-26 13:20 | PAPFT_PTH ---
PATIENT: Jacqueline Cheema LOC: [facility] U#:[id number] AGE/SX: 23/F ROOM: RE12/26/[address]: María Morales DO : 2000 BED: DIS: 12/26/2023 SPEC #: [id number] RECD: 12/26/23 14:44 STATUS: SAURAV REQ #: [id number] JANIE: 12/26/23 13:[address]: María Morales DEPT: [facility] Cytology RECD BY: Natalia Garzon ENTERED: 12/26/23 14:44 SP TYPE: PAPFT OTHR DR: Unknown,Unknown Tissues: 1 - CX/ENDOCX FOR PAP SMEARS Procedures: PAP THIN PREP/UVM Screening HPV DNA PROBE Comments: [id number] (HPV 16 & 18/45)
== END 2023-12-26 13:42 | disposition home or self-care (01) ==
LOC: LBN 13:41
PROVIDERS: Visit Provider Obstetrics & Gynecology
DX: R87.613 High grade squamous intraepithelial lesion on cytologic smear of cervix (HGSIL) (principal); Z12.4 Encounter for screening for malignant neoplasm of cervix; Z11.51 Encounter for screening for human papillomavirus (HPV); R87.810 Cervical high risk human papillomavirus (HPV) DNA test positive
CPT/HCPCS: 88142; 87624

== ENCOUNTER 2024-01-01 08:58 | Emergency (ER) | payer MEDICAID, SELFPAY ==
[2024-01-01 09:04] VITALS: BP 146/77; PULSE 127; RESP 12; TEMP 37.1; O2SAT 100
[2024-01-01 09:25] LABS: Bilirubin Negative (Negative); Blood Large (Negative); Clarity Clear (Clear); Glucose Negative (Negative); Ketones Negative (Negative); Leukocyte Esterase Negative (Negative); Nitrite Negative (Negative); Specific Gravity 1.015 (1.005-1.025); Urobilinogen 0.2 mg/dL (Up to 0.2)
[2024-01-01 09:32] LABS: Abs Immature Grans 0.01 10^3/uL (0.0-0.06); Absolute Basophil Count 0.05 10^3/uL (0.0-0.2); Absolute Eosinophil Count 0.03 10^3/uL (0.0-0.7); Absolute Lymphocyte Count 1.57 10^3/uL (1.2-3.4); Absolute Monocyte Count 0.29 10^3/uL (0.1-0.8); Absolute Neutrophil Count 1.96 10^3/uL (1.2-6.7); Basophils % 1.3 %; Eosinophils % 0.8 %; HCT 42.4 % (36.0-46.0); HGB 14.2 g/dL (11.2-15.7); Immature Grans % 0.3 %; Lymphocytes % 40.2 %; MCH 30.5 pg (27.0-33.0); MCHC 33.5 % (32.0-36.0); MCV 91 fL (80-95); MPV 9.7 fL (8.0-11.0); Monocytes % 7.4 %; Platelet Count 221 10^3/uL (130-400); RBC 4.66 10^6/uL (3.93-5.22); RDW 11.8 % (11.7-14.6); RDW-SD 39.5 fL; WBC 3.91 10^3/uL (4.4-10.8)
[2024-01-01 09:46] LABS: ALT 28 U/L (14-59); AST 16 U/L (15-37); Albumin 4.3 g/dL (3.4-5.0); Alkaline Phosphatase 43 U/L (46-116); Anion Gap 6.8 mmol/L (3-11); BUN 9 mg/dL (7-18); Bilirubin, Total 0.7 mg/dL (0.2-1.0); CO2 26.2 mmol/L (21.0-32.0); CREATININE 0.8 mg/dL (0.55-1.02); Calcium 8.9 mg/dL (8.5-10.1); Chloride 104 mmol/L (98-107); Estimated GFR 106.11 (mL/min/1.73m2); Glucose 124 mg/dL (74-106); Magnesium 1.9 mg/dL (1.8-2.4); Potassium 3.5 mmol/L (3.5-5.1); Sodium 137 mmol/L (136-145); Total Protein 7.9 g/dL (6.4-8.2)
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
[2024-01-01 09:49] LABS: Bacteria Few HPF (Negative); C & S Indicated? No; Casts 0-2 Hyaline LPF (Negative); Crystals Negative HPF (Negative); Epithelial Cells Moderate HPF (Negative); Mucus Trace (Negative); RBC 0-2 HPF (0-2); WBC 0-2 HPF (0-5)
[2024-01-01] MEDS: Lactated Ringers 1,000 ML 1000 ML IV (10:01)
[2024-01-01] MEDS: Ketorolac 15 MG/ML VIAL IVP (10:01)
[2024-01-01] MEDS: Normal Saline 10 ML VIAL IJ (10:02)
[2024-01-01] MEDS: Ondansetron 4 MG/2 ML VIAL IVP (10:02)
--- NOTE | 2024-01-01 13:31 | NUR.NOTE ---
Referral faxed to [facility] for an ovarian cyst, for a follow up in 2 weeks. Nursing Note:
== END 2024-01-01 11:14 | disposition home or self-care (01) ==
PROVIDERS: Emergency Provider Nurse Practitioner Family
DX: K52.9 Noninfective gastroenteritis and colitis, unspecified (principal)
CPT/HCPCS: 36415; 80053; 96361; 96374; 96375; 99284; 76830; 76856; 81003; 81015; 83735; 84484; 85025; J1885; J2405

== ENCOUNTER 2024-01-29 16:14 | Outpatient (REF) | payer MEDICAID, SELFPAY ==
[2024-01-31 17:37] LABS: Chlamydia Result Negative (Negative); GC Result Negative (Negative)
== END 2024-01-29 16:15 | disposition home or self-care (01) ==
LOC: LBN 16:14
PROVIDERS: Visit Provider Obstetrics & Gynecology
DX: Z11.3 Encounter for screening for infections with a predominantly sexual mode of transmission (principal)
CPT/HCPCS: 87491; 87591

== ENCOUNTER 2024-01-30 18:56 | Emergency (ER) | payer MEDICAID, SELFPAY ==
[2024-01-30 19:13] VITALS: BP 128/105; PULSE 80; RESP 16; TEMP 37; O2SAT 100
--- NOTE | 2024-01-30 19:15 | RT.EKG_ITS ---
APPROVED REPORT Exam: Resting ECG Reason for Exam: syncope Patient Location: E HR:78 bpm ECG Measurements Heart Rate 78 AXIS DC 134 P 31 QRSd 94 QRS 28 QT 370 T 21 QTc 422 Conclusion Sinus rhythm...normal P axis, V-rate 60- 99 Ventricular premature complex...V complex w/ short R-R interval sinus rhythm, normal axis, PVC, non ischemic
[2024-01-30 19:33] LABS: Abs Immature Grans 0.02 10^3/uL (0.0-0.06); Absolute Basophil Count 0.09 10^3/uL (0.0-0.2); Absolute Eosinophil Count 0.01 10^3/uL (0.0-0.7); Absolute Lymphocyte Count 2.59 10^3/uL (1.2-3.4); Absolute Monocyte Count 0.49 10^3/uL (0.1-0.8); Absolute Neutrophil Count 3.77 10^3/uL (1.2-6.7); Basophils % 1.3 %; Eosinophils % 0.1 %; HCT 41.9 % (36.0-46.0); HGB 14.3 g/dL (11.2-15.7); Immature Grans % 0.3 %; Lymphocytes % 37.2 %; MCH 30.8 pg (27.0-33.0); MCHC 34.1 % (32.0-36.0); MCV 90 fL (80-95); Neutrophils % 54.1 %; Platelet Count 291 10^3/uL (130-400); RBC 4.64 10^6/uL (3.93-5.22); RDW 11.8 % (11.7-14.6); RDW-SD 39.1 fL; WBC 6.97 10^3/uL (4.4-10.8)
[2024-01-30 19:42] LABS: HCG Qual (Serum) Negative
[2024-01-30 19:47] LABS: ALT 20 U/L (14-59); AST 14 U/L (15-37); Albumin 4.6 g/dL (3.4-5.0); Alkaline Phosphatase 43 U/L (46-116); Anion Gap 10.3 mmol/L (3-11); BUN 12 mg/dL (7-18); Bilirubin, Total 0.83 mg/dL (0.2-1.0); CO2 26.7 mmol/L (21.0-32.0); CREATININE 0.9 mg/dL (0.55-1.02); Calcium 9.4 mg/dL (8.5-10.1); Chloride 102 mmol/L (98-107); Estimated GFR 92.12 (mL/min/1.73m2); Glucose 124 mg/dL (74-106); Lipase 23 U/L (16-77); Magnesium 1.9 mg/dL (1.8-2.4); Potassium 3.7 mmol/L (3.5-5.1); Sodium 139 mmol/L (136-145); Total Protein 8.3 g/dL (6.4-8.2)
[2024-01-30] MEDS: Normal Saline 1,000 ML 1000 ML IV (20:14)
[2024-01-30] MEDS: Prochlorperazine 10 MG/2 ML VIAL 5 MG IVP (20:14)
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
[2024-01-30 21:52] VITALS: BP 120/70; PULSE 70; RESP 16; TEMP 37; O2SAT 100
[2024-01-30 21:54] VITALS: BP 120/70; PULSE 70; RESP 16; TEMP 37; O2SAT 100
[2024-01-30 21:55] LABS: Bilirubin Small (Negative); Blood Trace-intact (Negative); Clarity Clear (Clear); Glucose Negative (Negative); Ketones 80 mg/dL (Negative); Leukocyte Esterase Negative (Negative); Nitrite Negative (Negative)
[2024-01-30 22:20] LABS: Bacteria Few HPF (Negative); C & S Indicated? No; Casts Negative LPF (Negative); Crystals Negative HPF (Negative); Epithelial Cells Few HPF (Negative); Mucus Moderate (Negative); RBC 0-2 HPF (0-2); WBC 0-2 HPF (0-5)
== END 2024-01-30 21:54 | disposition home or self-care (01) ==
PROVIDERS: Emergency Provider Physician Assistant
DX: R55 Syncope and collapse (principal); R10.32 Left lower quadrant pain
CPT/HCPCS: 36415; 36416; 80053; 82962; 83690; 93005; 96361; 96374; 99284; 81003; 81015; 83735; 84703; 85025; 93010; 99283; J0780

== ENCOUNTER 2024-06-10 12:23 | Outpatient (REF) | payer MEDICAID, SELFPAY ==
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
--- OUTSIDE RECORDS SUMMARY | 2024-06-10 12:26 | XMS_ITS | Encounter Summary ---
Author Organization [facility] [place] [address] Care Team Providers Care Broomcorn Seeder Name Role Phone None Primary Care Provider Unavailabl e Reason for Visit * Reason Onset Date Comments Post Procedure Call 06/09/2021 Encounter Details Date Type Department Care Team (Late st Contact Info) Description 06/09/2021 [place]phone [place] [address] Lianna Patterson MD [facility] [place] [address] Post Procedure Call Social History Tobacco Use Types Packs/Day Years Used Date Smoking Tobacco: Never Assessed Sex and Gender Information Value Date Recorded Sex Assigned at Not on file Gender Identity Not on file Sexual Orientation Not on file documented as of this encounter Miscellaneous Notes * Telephone Encounter - Camilla Fletcher - 06/14/2021 1:18 PM EST Spoke with patients aunt in regards to medication refill and Lovenox usage. Patient and Patients aunt aware. Refill sent to preferred pharmacy. Please see Dr. Patterson for any further questions. * Addendum Note - Lianna Patterson MD - 06/14/2021 12:55 PM ESTAddended by: LIANNA PATTERSON on: 06/14/2021 12:55 PM Modules accepted: Orders * Telephone Encounter - Carmel Smith - 06/09/2021 11:35 AM EDT Call Center Call Note Provider: lars DOI/ DOS: DOS 06/06/21 Procedure: open treatment of femoral shaft fx Reason for call:Patients aunt called today to see if patient is ok to take Ibuprofen as well with the pain medication. She said it was stated that it was ok to take Tylenol but doesn't mention Ibuprofen. Would like a call back to advise. Chart reviewed to answer questions: Yes Team message being sent to: Trauma Does patient have My eDH: No Response needed: yes. Patient was informed that they will be contacted by a member of the team within 48 hours Can we leave a detailed voicemail if patient does not answer the phone? Yes, Please call [phone] to advise. documented in this encounter Plan of Treatment Not on file documented as of this encounter Visit Diagnoses Diagnosis Closed displaced transverse fracture of shaft of right femur, initial encounter documented in this encounter Care Teams Broomcorn Seeder Relationship Specialty Start Date End Date None None PCP - General 06/05/21 documented as of this encounter
--- OUTSIDE RECORDS SUMMARY | 2024-06-10 12:26 | XMS_ITS | Encounter Summary ---
[place] [address] Care Team Providers Care Marquetry Worker Name Role Phone None Primary Care Provider Unavailabl e Reason for Visit * Reason Onset Date Comments Questions 06/13/2021 Encounter Details Date Type Department Care Team (Late st Contact Info) Description 06/13/2021 Telephone [place] [address] Lianna Patterson MD [facility] [place] [address] Questions Social History Tobacco Use Types Packs/Day Years Used Date Smoking Tobacco: Never Assessed Sex and Gender Information Value Date Recorded Sex Assigned at Not on file Gender Identity Not on file Sexual Orientation Not on file documented as of this encounter Miscellaneous Notes * Addendum Note - Lianna Patterson MD - 06/14/2021 2:59 PM ESTAddended by: LIANNA PATTERSON on: 06/14/2021 02:59 PM Modules accepted: Orders * Addendum Note - Camilla Fletcher - 06/14/2021 1:18 PM ESTAddended by: CAMILLA FLETCHER on: 06/14/2021 01:18 PM Modules accepted: Orders * Telephone Encounter - Carmel Smith Roddy - 06/13/2021 3:38 PM EST Call Center Call Note Provider: Jay DOI/ DOS: flaco 06/06/21 Procedure: treatment for R femoral shaft Fx, intrameduallary nailing Reason for call:Patient called to find out if she really needs to do the injections of Enoxaparin (Lovenox) if she has been up and moving around. Chart reviewed to answer questions: Yes Team message being sent to: Trauma Does patient have My eDH: No Response needed: yes. Patient was informed that they will be contacted by a member of the team within 48 hours. Please give patient a call at [phone]. Can we leave a detailed voicemail if patient does not answer the phone? Yes documented in this encounter Plan of Treatment Not on file documented as of this encounter Visit Diagnoses Diagnosis s/p IMN R femur fx 06/06/21 (Dr. Patterson) documented in this encounter Care Teams Marquetry Worker Relationship Specialty Start Date End Date None None PCP - General 06/05/21 documented as of this encounter
--- OUTSIDE RECORDS SUMMARY | 2024-06-10 12:26 | XMS_ITS | Encounter Summary ---
Author Organization [facility] Address [facility] [place] [address] Care Team Providers Care Advice Line Rn Name Role Phone None Primary Care Provider Unavailabl e Encounter Details Date Type Department Care Team (Latest Contact Info) Description 10/05/2021 10:17 AM EST - 10/05/2021 11:59 PM [facility] Hospital Encounter XRay at [address] [place] [address] Andrea Thompson MD [facility] [place] [address] Closed displaced transverse fracture of shaft of [...] Comments XR FEMUR 2 VIEWS RIGHT Routine 10/05/2021 10:59 AM EST Closed displaced transverse fracture of shaft of right femur with routine healing, subsequent encounter documented in this encounter Results * XR Femur 2 views Right (Generic) (10/05/2021 10:59 AM EST) Anatomical Region Laterality Modality Thigh Right Digital Radiogra phy Impressions 10/05/2021 11:46 AM EST Healing femoral shaft fracture status post placement of a cephalomedullary air. Hardware is intact. Thank you for letting us participate in the care of this patient. ??If you are a health care provider and have any questions regarding this report, please contact the number below. ??For patients who have questions please contact the health health care aide that requested your imaging first. ? Narrative 10/05/2021 11:46 AM EST EXAMINATION: XR FEMUR 2 VIEWS RIGHT (GENERIC) CLINICAL HISTORY: ??s/p R femur IMN ?? (as entered by ordering provider in the order requisition) TECHNIQUE: ??Segmented AP and frog leg lateral views. COMPARISON: Right femur radiographs 08/07/2021 and 06/19/2021 FINDINGS: Status post placement of cephalomedullary nail traversing a healing femoral shaft fracture. Hardware is intact. Configuration of the fracture site is unchanged. There is increasing bridging callus formation at the fracture site. The fracture lucency is less conspicuous when compared to prior study. Normal alignment of the right hip and right knee. Procedure Note Kari Dixon MD - 10/05/2021 EXAMINATION: XR FEMUR 2 VIEWS RIGHT (GENERIC) CLINICAL HISTORY: s/p R femur IMN (as entered by ordering providerin the order requisition) TECHNIQUE: Segmented AP and frog leg lateral views. COMPARISON: Right femur radiographs 08/07/2021 and 06/19/2021 FINDINGS: Status post placement of cephalomedullary nail traversing a healingfemoral shaft fracture. Hardware is intact. Configuration of the fracture siteis unchanged. There is increasing bridging callus formation at the fracturesite. The fracture lucency is less conspicuous when compared to prior study.Normal alignment of the right hip and right knee. IMPRESSION Healing femoral shaft fracture status post placement of a cephalomedullaryair. Hardware is intact. Thank you for letting us participate in the care of this patient. If youare a health care provider and have any questions regarding this report,please contact the number below. For patients who have questions please contactthe health health care aide that requested your imaging first. Electronically signed by: Kari Dixon MD, [facility]([phone]), at 10/05/2021 11:46 AM Andrea Thompson MD IMG DX ORDERABLES documented in this encounter Visit Diagnoses Diagnosis Closed displaced transverse fracture of shaft of right femur with routine healing, subsequent encounter documented in this encounter Care Teams Advice Line Rn Relationship Specialty Start Date End Date None None PCP - General 06/05/21 documented as of this encounter
--- OUTSIDE RECORDS SUMMARY | 2024-06-10 12:26 | XMS_ITS | Encounter Summary ---
Author Organization [facility] Address [facility] [place] [address] Care Team Providers Care Quality Assurance Associate Name Role Phone None Primary Care Provider Unavailabl e Encounter Details Date Type Department Care Team (Late st Contact Info) Description 01/26/2022 Orders [place] [address] Andrea Thompson MD [facility] [address] ORTHOPAED[place] [address] Closed displaced transverse fracture of shaft of [...] on file documented as of this encounter Results * XR Femur 2 [...] have questions please contact the health care management assistant that requested your imaging first. ? Electronically signed by: Parveen Villagran MD, [facility] ([phone]), at 02/07/2022 11:00 AM Narrative 02/07/2022 11:00 [...] who have questions please contactthe health care management assistant that requested your imaging first. Electronically signed by: Parveen Villagran MD, [facility]([phone]), at 02/07/2022 11:00 AM Andrea Thompson MD IMG DX ORDERABLES documented in this encounter Visit Diagnoses Diagnosis Closed displaced transverse fracture of shaft of right femur with routine healing, subsequent encounter Closed displaced transverse fracture of shaft of right femur with routine healing, subsequent encounter documented in this encounter Care Teams Quality Assurance Associate Relationship Specialty Start Date End Date None None PCP - General 06/05/21 documented as of this encounter
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
--- OUTSIDE RECORDS SUMMARY | 2024-06-10 12:26 | XMS_ITS | Encounter Summary ---
Author Organization [facility] [place] [address] Care Team Providers Care Painter Name Role Phone None Primary Care Provider Unavailabl e Reason for Visit * Reason Onset Date Comments Medication Refill 06/09/2021 Encounter Details Date Type Department Care Team (Late st Contact Info) Description 06/09/2021 Refill [place] [address] Deisy Palmer PA [facility] [place] [address] s/p IMN R femur fx 06/06/21 (Dr. Thompson) Social History Tobacco Use Types Packs/Day Years Used Date Smoking Tobacco: Never Assessed Sex and Gender Information Value Date Recorded Sex Assigned at Not on file Gender Identity Not on file Sexual Orientation Not on file documented as of this encounter Miscellaneous Notes * Telephone Encounter - Tabitha Casanova RN - 06/09/2021 2:32 PM EDT Images from the original note were not included. Medication Refill Request Surgery/Injury/Provider: s/p IMN R femur fx 06/06/21 (Dr. Thompson) Medication being requested: Oxycodone 5 mg Query: Last refill or Original Rx: 06/07/21 Follow Up: 06/19/21 How is this medication being used currently: 1 pill every four hours Pain level: 4-5/10 Bowel concerns: none Other pain medications used and how: Tylenol Yes Gabapentin No Naproxen No OTHER Medication Taper Plan: I pill every four hours instead of every three hours Teaching done regarding: taking nonnarcotic pain medications, taking the least amount of opioid needed for the least amount of time for adequate pain management and tapering of opioids with verbalized understanding by the patient. Requested Prescription to be sent electronically to [facility] of [place], [place] (location). Prescription prepped and pended for OSMAN Mi(provider) review. The patient knows how to contact orthopaedics if any further questions or concerns occur. documented in this encounter Plan of Treatment Not on file documented as of this encounter Visit Diagnoses Diagnosis s/p IMN R femur fx 06/06/21 (Dr. Thompson) documented in this encounter Care Teams Painter Relationship Specialty Start Date End Date None None PCP - General 06/05/21 documented as of this encounter
--- OUTSIDE RECORDS SUMMARY | 2024-06-10 12:26 | XMS_ITS | Encounter Summary ---
Author Organization [facility] [place] [address] Care Team Providers Care Dimension Warehouse Supervisor Name Role Phone None Primary Care Provider Unavailabl e Reason for Visit * Reason Comments Follow-up R DIAPHYSEAL FEMUR F X DOS 06/06/21 (LEONARDO) DOI 06/05/21 Encounter Details Date Type Department Care Team (Late st Contact Info) Description 02/07/2022 11:30 AM EDT Office [place] [address] [facility] [place] [address] Closed displaced transverse fracture of shaft of [...] Sign Reading Time Taken Comments Blood Pressure 108/71 02/07/2022 11:09 AM EDT Pulse 91 02/07/2022 11:09 AM EDT Temperature - - Respiratory Rate - - Oxygen Saturation - - Inhaled Oxygen Concentration - - Weight 59 kg (130 lb) 02/07/2022 11:09 AM EDT Height 154.9 cm (5' 1) 02/07/2022 11:09 AM EDT Body Mass Index 24.56 02/07/2022 11:09 AM EDT documented in this encounter Progress Notes * Andrea Thompson MD - 02/07/2022 11:30 AM EDT [facility] Jacqueline Cheema returns for follow-up 8months s/p right femur IMN on 06/06/21. She reports she is doing very well. She has no pain. She has had no issues with her incisions. She is full weight bearing and back to all her regular activities without any issues. She has no other complaints today, and has a negative review of systems. [facility] FollowUp 08/07/2021 Health in general Very Good [...] of implant failure or loss of fixation. Fracture has consolidated and is healed. No other osseous abnormalities. Assessment and Plan: Jacqueline Cheema is a 21 y.o. female who returns for follow-up 8months s/p surgery. She is doing well. She has healed her femur fracture -Weight Bearing Status: WBAT RLE -No restrictions -Follow-up PRN This plan was discussed with the patient and she is in agreement. All of the patient's questions were answered. Andrea Thompson MD Department of Orthopaedic Surgery 02/07/22 documented in this encounter Plan of Treatment Not on file documented as of this encounter Visit Diagnoses Diagnosis Closed displaced transverse fracture of shaft of right femur with routine healing, subsequent encounter documented in this encounter Care Teams Dimension Warehouse Supervisor Relationship Specialty Start Date End Date None None PCP - General 06/05/21 documented as of this encounter
--- OUTSIDE RECORDS SUMMARY | 2024-06-10 12:26 | XMS_ITS | Continuity of Care Document ---
Author Organization [facility] Address [address] [place] [address] Encounter LTTL_SD FIN NBR [id number] Date(s): 02/05/24 - 02/05/24 [facility] [address] [place] [address]- Encounter Diagnosis Ovarian cyst(Discharge Diagnosis) - 02/05/24 Discharge Disposition: Home f/u External Provider Attending Physician: Abdoul Alfaro MD Admitting Physician: Abdoul Alfaro MD Allergies, Adverse Reactions, Alerts No Known Medication Allergies Assessment and Plan Extracted from: Title:ED Provider Note Author:OSMAN Saunders Date:02/05/24 Assessment/Plan 1.??Ovarian cyst??N83.209 ??Patient discharged??home. ??Close follow-up with gynecology encouraged Motrin and warm compresses. ??Return precautions understood. Ordered: Discharge Patient, 02/05/24 12:07:00 EDT, Home Independently ?? Patient Education Ovarian Cyst Follow Up With When Contact Information Follow up with specialist Within 1 month Additional Instructions: Functional Status 02/05/24 Family Member Travel History No recent t ravel Recent Travel History No recent travel Other exposure to Infectious Disease Non e Mental Status 02/05/24 Eye Opening Response [place] Spontaneous ly Best Verbal Response Alejandro Oriented Best Motor Response Alejandro Obeys comman ds [place] Coma Score 15 Results Laboratory List Name Date CBC w/ Diff 02/05/24 Comprehensive Metabolic Panel (CMP) Lipase Level 02/05/24 Test Urine Qual 02/05/24 Urinalysis Microscopic 02/05/24 Urinalysis with Micro if Indicated and C ulture if Indicated 02/05/24 Automated Diff 02/05/24 Most recent to oldest [Reference Range]: 1 WBC [4.8-10.8 K/mcL] 5.9 K/mcL (02/05/24 9:35 AM) RBC [4.20-5.40 Million/mcL] 4.56 Million /mcL (02/05/24 9:35 AM) Neutro Auto [42.2-75.2 %] 70.6 % (02/05/24 9:35 AM) Lymph Auto [20.5-51.1 %] 19.9 % *LOW* (02/05/24 9:35 AM) [place] Auto [1.7-9.3 %] 7.6 % (02/05/24 9:35 AM) Basophil Auto [0.0-0.8 %] 1.5 % *HI* (02/05/24 9:35 AM) BUN [7-25 mg/dL] 10 mg/dL (02/05/24 9:35 AM) UA Color [Yellow] Yellow (02/05/24 9:24 AM) UA WBC [0-3] 0-3 (02/05/24 9:24 AM) Glucose Level [70-109 mg/dL] 99 mg/dL (02/05/24 9:35 AM) Potassium Level [3.5-5.1 mmol/L] 3.8 mmo l/L (02/05/24 9:35 AM) Baso Absolute [0.0-0.2 K/mcL] 0.1 K/mcL (02/05/24 9:35 AM) MCV [81.0-99.0 fL] 90.7 fL (02/05/24 9:35 AM) UA Urobilinogen [0.2] 1.0 *NA* (02/05/24 9:24 AM) UA Bili [Negative] Small *NA* (02/05/24 9:24 AM) UA Ketones [Negative] 40 *NA* (02/05/24 9:24 AM) AST [13-39 IntlUnit/L] 12 IntlUnit/L *LOW* (02/05/24 9:35 AM) ALT [7-52 IntlUnit/L] 13 IntlUnit/L (02/05/24 9:35 AM) MCHC [32.0-37.0 g/dL] 34.2 g/dL (02/05/24 9:35 AM) Osmolality [275-295 mOsm/kg] 271 mOsm/kg *LOW* (02/05/24 9:35 AM) Sodium Level [136-145 mmol/L] 136 mmol/L (02/05/24 9:35 AM) UA RBC [0-3] 0-3 (02/05/24 9:24 AM) UA Leuk Est [Negative] Negative (02/05/24 9:24 AM) Lymph Absolute [1.2-3.4 K/mcL] 1.2 K/mcL (02/05/24 9:35 AM) UA Nitrite [Negative] Negative *NA* (02/05/24:24 AM) UA Glucose [Negative] Negative *NA* (02/05/24 9:24 AM) Hct [37.0-47.0 %] 41.4 % (02/05/24 9:35 AM) Lipase Level [11-82 unit/L] 22 unit/L 1 (02/05/24 9:35 AM) Calcium Level [8.6-10.3 mg/dL] 9.9 mg/dL (02/05/24 9:35 AM) [place] Absolute [0.1-0.6 K/mcL] 0.4 K/mcL (02/05/24 9:35 AM) Albumin Level [3.5-5.7 g/dL] 5.1 g/dL (02/05/24 9:35 AM) Protein Total [6.4-8.9 g/dL] 8.2 g/dL (02/05/24 9:35 AM) UA Protein [Negative] Negative *NA* (02/05/24 9:24 AM) MCH [27.0-31.0 pg] 31.0 pg (02/05/24 9:35 AM) Neutro Absolute [1.4-6.5 K/mcL] 4.2 K/mc L (02/05/24 9:35 AM) Bilirubin Total [0.3-1.0 mg/dL] 0.8 mg/d L (02/05/24 9:35 AM) Hgb [12.0-16.0 g/dL] 14.1 g/dL (02/05/24 9:35 AM) Alk Phos [34-104 IntlUnit/L] 32 IntlUnit /L *LOW* (02/05/24 9:35 AM) UA Blood [Negative] Trace *ABN* (02/05/24 9:24 AM) MPV [7.4-10.4 fL] 8.3 fL (02/05/24 9:35 AM) UA Spec Grav [1.001-1.030] 1.020 (02/05/24 9:24 AM) Platelets [130-400 K/mcL] 255 K/mcL (02/05/24 9:35 AM) CO2 [21-31 mmol/L] 26 mmol/L (02/05/24 9:35 AM) Eos Absolute [0.0-0.2 K/mcL] 0.0 K/mcL (02/05/24 9:35 AM) UA Squam Epithelial [0-3] 0-3 (02/05/24 9:24 AM) UA pH [5.00-9.00] 7.00 (02/05/24 9:24 AM) UA Appear [Clear] Clear (02/05/24 9:24 AM) Chloride Level [98-107 mmol/L] 102 mmol/ L (02/05/24 9:35 AM) RDW-CV [11.5-14.5 %] 12.7 % (02/05/24 9:35 AM) A/G Ratio [1.0-2.5 g/dL] 1.6 g/dL (02/05/24 9:35 AM) BUN/Creat Ratio [8.0-20.0] 12.5 (02/05/24 9:35 AM) Globulin [2.3-3.5 g/dL] 3.1 g/dL (02/05/24 9:35 AM) UA Culture Ind?. [No] No (02/05/24 9:24 AM) Urine Srce Clean Catch (02/05/24 9:24 AM) Creatinine Level [0.60-1.20 mg/dL] 0.80 mg/dL (02/05/24 9:35 AM) Anion Gap [3.0-12.0] 8.0 (02/05/24 9:35 AM) Eos, Auto [0.00-3.00 %] 0.40 % (02/05/24 9:35 AM) U hCG Ql [Negative] Negative (02/05/24 9:24 AM) eGFR CKD-EPI [>=60 mL/min/1.73 m2] 106 m L/min/1.73 m2 (02/05/24 9:35 AM) 1Interpretive Data: K-nvolut-s-benzoquinone imine (meabolite of Acetaminophen) will generate erroneously low lipase results in samples for patients that have taken toxic doses of acetaminophen. Radiology Reports * Exam Date Time Procedure Performing Provider Status 02/05/24 11:[address] Abdomen and Pelvis w/ Contrast Anisha Rodríguez; Auth (Verified) Notes: (CT Abdomen and Pelvis w/ Contrast) Reason For Exam: abd pain CT Abdomen and Pelvis w/ Contrast EXAM DESCRIPTION: CT Abdomen and Pelvis w/ Contrast 02/05/2024 INDICATION: ABD PAIN TECHNIQUE: All CT scans at this facility use at least one of these dose optimization techniques: Automated exposure control; mA and/or kV adjustment per patient size (includes targeted exams where dose is matched to clinical indication); or iterative reconstruction. Technique: Axial CT images of the abdomen/pelvis with IV contrast administration 100 cc of Isovue-300 contrast was utilized COMPARISON: None FINDINGS: No focal hepatic lesion. Normal enhancement of the main hepatic veins and main portal vein. Normal spleen size without focal mass No calcified gallstones in the gallbladder. Adrenal glands and pancreas appear within normal limits No focal renal mass or perinephric fluid collection on either side. Normal caliber abdominal aorta No retroperitoneal adenopathy in the abdomen or pelvis. Ovoid fluid attenuation lesion in the left aspect of the pelvis likely reflecting left ovarian cyst measuring 3.9 x 3.3 cm. Smaller fluid attenuation lesion in the right aspect of the pelvis suspicious for right ovarian cyst measuring 2.4 x 2.1 cm. No bowel dilatation to suggest obstruction or ileus. No ascites or free intraperitoneal air. Normal appendix. Mild mural thickening involving a majority of the colon likely reflecting underdistention artifact. The visualized lung bases are clear. No suspicious regional osseous lesions. IMPRESSION: Left adnexal cystic lesion measuring 3.9 x 3.3 cm most consistent with left ovarian cyst Right adnexal cystic lesion measuring 2.4 x 2.1 cm most consistent with right ovarian cyst. Nonobstructive bowel pattern. No free air or inflammatory changes. Normal appendix. JOB #: [id number] Final Signed by: Champ Tran MD Signed (Electronic Signature): 02/05/2024 11:34 am Vital Signs Most recent to oldest [Reference Range]: 1 2 Temperature Temporal Artery [36-38 Deg C ] 36.4 Deg C (02/05/24 9:43 AM) Peripheral Pulse Rate [60-100 bpm] 75 bp m (02/05/24 12:17 PM) 102 bpm *HI* (02/05/24 9:43 AM) Respiratory Rate [12-24 br/min] 16 br/mi n (02/05/24 12:17 PM) 18 br/min (02/05/24 9:43 AM) Blood Pressure [90-140/60-90 mmHg] 92/64 mmHg (02/05/24 12:17 PM) 112/83mmHg (02/05/24 9:43 AM) Mean Arterial Pressure, Cuff [65-140 mmH g] 93 mmHg (02/05/24 9:43 AM) Weight 58.97 kg (02/05/24 9:43 AM) Weight Dosing 58.970 kg (02/05/24 9:43 AM) Height 154.94 cm (02/05/24 9:43 AM) Body Mass Index 24.56 kg/m2 (02/05/24 9:43 AM) Social History Social History Type Response Tobacco Never tobacco user T obacco Use:. Sex Hospital Discharge Instructions Patient Education 02/05/2024 11:07:43 Ovarian Cyst Ovarian Cyst An ovarian cyst is a fluid-filled sac that forms on an ovary. The ovaries are small organs that produce eggs in women. Various types of cysts can form on the ovaries. Some may cause symptoms and require treatment. Most ovarian cysts go away on their own, are not cancerous (are benign), and do not cause problems. What are the causes? Ovarian cysts may be caused by: ??? Ovarian hyperstimulation syndrome. This is a condition that can develop from taking fertility medicines. It causes multiple large ovarian cysts to form. ??? Polycystic ovarian syndrome (PCOS). This is a common hormonal disorder that can cause ovarian cysts to form, and can cause problems with your period or fertility. ??? The normal menstrual cycle. What increases the risk? The following factors may make you more likely to develop this condition: ??? Being overweight or obese. ??? Taking fertility medicines. ??? Taking certain forms of hormonal control. ??? Smoking. What are the signs or symptoms? Many ovarian cysts do not cause symptoms. If symptoms are present, they may include: ??? Pelvic pain or pressure. ??? Pain in the lower abdomen. ??? Pain during sex. ??? Abdominal swelling. ??? Abnormal menstrual periods. ??? Increasing pain with menstrual periods. How is this diagnosed? These cysts are commonly found during a routine pelvic exam. You may have tests to find out more about the cyst, such as: ??? Ultrasound. ??? CT scan. ??? MRI. ??? Blood tests. How is this treated? Many ovarian cysts go away on their own without treatment. Your health care provider may want to check your cyst regularly for 2???3 months to see if it changes. If you are in menopause, it is especially important to have your cyst monitored closely because menopausal women have a higher rate of ovarian cancer. When treatment is needed, it may include: ??? Medicines to help relieve pain. ??? A procedure to drain the cyst (aspiration). ??? Surgery to remove the whole cyst (cystectomy). ??? Hormone treatment or control pills. These methods are sometimes used to help keep cysts from coming back. ??? Surgery to remove the ovary (oophorectomy). Follow these instructions at home: ??? Take imma-agc-qcofmcf and prescription medicines only as told by your health care provider. ??? Ask your health care provider if any medicine prescribed to you requires you to avoid driving or using machinery. ??? Get regular pelvic exams and Pap tests as often as told by your health care provider. ??? Return to your normal activities as told by your health care provider. Ask your health care provider what activities are safe for you. ??? Do not use any products that contain nicotine or tobacco, such as cigarettes, e-cigarettes, andchewing tobacco. If you need help quitting, ask your health care provider. ??? Keep all follow-up visits. This is important. Contact a health care provider if: ??? Your periods are late, irregular, painful, or they stop. ??? You have pelvic pain that does not go away. ??? You have pressure on your bladder or trouble emptying your bladder completely. ??? You have any of the following: ??? A feeling of fullness. ??? You are gaining weight or losing weight without changing your exercise and eating habits. ??? Pain, swelling, or bloating in the abdomen. ??? Loss of appetite. ??? Pain and pressure in your back and pelvis. ??? You think you may be . Get help right away if: ??? You have abdominal or pelvic pain that is severe or gets worse. ??? You cannot eat or drink without vomiting. ??? You suddenly develop a fever or chills. ??? Your menstrual period is much heavier than usual. Summary ??? An ovarian cyst is a fluid-filled sac that forms on an ovary. ??? Some ovarian cysts may cause symptoms and require treatment. ??? These cysts are commonly found during a routine pelvic exam. ??? Many ovarian cysts go away on their own without treatment. This information is not intended to replace advice given to you by your health care provider. Make sure you discuss any questions you have with your health care provider. Document Revised: 12/29/2020 Document Reviewed: 12/29/2020 [employer]enes Patient Education ?? 2022 [employer]. Follow Up Care 02/05/2024 09:13:53 With:Follow up with specialist Address:Unknown When:1 month Physician Emergency department Note * OSMAN Saunders: PERFORM Event Display: ED Note Physician Authored Date: [id number] RINKU GARCIA :2000 Age:23 years Sex:Female Visit Date:02/05/2024 Basic Information Time Seen: OSMAN Saunders / 02/05/2024 09:48 Chief Complaint Pt has had intermittent LLQ abd pain x 2 months. Pain radiates into her back. Pt has had n/v, with 2 episodes this morning. Denies painful urination, blood in urine, stool, or vomit. History Of Present Illness: This is??a??23-year-old female here??for concerns of abdominal pain over the past month. ??She explains has been a consistent pain in the??left lower??quadrant??which has significantly worsened over the past 2 weeks.?? Is not colicky in nature however 2 days ago the pain??worsened??enough where shehad a syncopal episode. ??She was evaluated at [facility]??after this event and discharged home with reassurance.?? She??does feel as if the pain radiates around to the left flank??at times and has had a feeling of??increased urinary urgency??but denies any dysuria??or hematuria.?? Denies any vaginal pain discharge or pruritus. ??Denies chances of .?? Has been having??looser stools over the past??month but no diarrhea no melena??or bloody stools.?? Has had associated nausea and vomiting mostly??due to the pain. ??Pain is i??nonexertional or postprandial. Review of Systems: See HPI Physical Exam Vitals & Measurements T:??36.4?C ??(Temporal Artery)?? HR:??75??(Peripheral)?? RR:??16?? BP:??92/64?? SpO2:??98%?? HT:??154.94??cm?? WT:??58.97??kg?? BMI:??24.56?? Pain Score:??3?? O2 Therapy:??Room air?? General: Patient is alert and engaging, appears well. Is in no acute distress. Speaking comfortablyin full sentences.?? Constitutional: No fevers, chills or diaphoresis.?? HEENT: Head normocephalic and atraumatic. Neck supple with FROM. Respiratory: ??No obvious work of breathing, regular rate. BS equal b/l, clear to auscultation.?? Cardiovascular: Heart regular rate and rhythm w/o murmurs, rubs or gallops. No peripheral edema present.?? GI: normoactive BS. Abdomen soft TTP over the LLQ, RLQ, LUQ and left CVAT.?? Extremities: No obvious deformities. FROM.?? Integumentary: Skin warm and pink. No rashes or ecchymosis present.?? Neuro: CN III-XII grossly intact.?? Psychiatric: acting appropriate for age and circumstance. Normal mood without obvious ??affect.?? Medical Decision Making: Pleasant well-appearing??23-year-old female here for??intermittent??left and right lower quadrant abdominal pain over the past??month.?? She appears well in no acute distress and vitals obtained and reviewed within normal limits. ??Will obtain labs including a urine and urine all of whichwere unrevealing. ??I did??receive??documentation from her visit in [facility] 2 days ago and reviewed this??has not been any significant changes??in her lab work. ??Because she is continue to have these??pains and she is not ??I??do not think obtaining a CT of the abdomen would be unreasonable atthis time.?? Risks and benefits were discussed with patient and she agrees to this imaging. CT reveals left??ovarian cyst. ??No obstruction or ileus, free air and appendix normal.?? This is consistent with her pain and these results were discussed with patient. ??She recently saw her cloth layer a week ago and plans to reach back out to facilitate??a close follow-up. ??In the meantime will continue with Motrin and warm compresses. Procedure No Qualifying Data Assessment/Plan 1.??Ovarian cyst??N83.209 ??Patient discharged??home. ??Close follow-up with gynecology encouraged Motrin and warm compresses. ??Return precautions understood. Ordered: Discharge Patient, 02/05/24 12:07:00 EDT, Home Independently ?? Patient Education Ovarian Cyst Follow Up With When Contact Information Follow up with specialist Within 1 month Additional Instructions: Problem List/Past Medical History Ongoing No qualifying data Historical No qualifying data Medication Administration Given Sodium Chloride 0.9%, 1000 mL, Hydration Bolus acetaminophen, 1000 mg, IV Piggyback ondansetron, 4 mg, IV Push Allergies No Known Medication Allergies Social History Electronic Cigarette/Vaping Electronic Cigarette Use: Never. Tobacco Never tobacco user Tobacco Use:. Diagnostic Results CT Abdomen and Pelvis w/ Contrast 02/05/2024 11:[address] Abdomen and Pelvis w/ Contrast ?? 02/05/24 11:34:10 EXAM DESCRIPTION: CT Abdomen and Pelvis w/ Contrast ?? 02/05/2024 ?? INDICATION: ABD PAIN ?? TECHNIQUE: All CT scans at this facility use at least one of these dose optimization techniques: Automated exposure control; mA and/or kV adjustment per patient size (includes targeted exams where dose is matched to clinical indication); or iterative reconstruction. ?? Technique: Axial CT images of the abdomen/pelvis with IV contrast administration ?? 100 cc of Isovue-300 contrast was utilized ?? COMPARISON: None ?? FINDINGS: No focal hepatic lesion. Normal enhancement of the main hepatic veins and main portal vein. ?? Normal spleen size without focal mass ?? No calcified gallstones in the gallbladder. ?? Adrenal glands and pancreas appear within normal limits ?? No focal renal mass or perinephric fluid collection on either side. ?? Normal caliber abdominal aorta ?? No retroperitoneal adenopathy in the abdomen or pelvis. ?? Ovoid fluid attenuation lesion in the left aspect of the pelvis likely reflecting left ovarian cyst measuring 3.9 x 3.3 cm. Smaller fluid attenuation lesion in the right aspect of the pelvis suspicious for right ovarian cyst measuring 2.4 x 2.1 cm. ?? No bowel dilatation to suggest obstruction or ileus. No ascites or free intraperitoneal air. Normal appendix. Mild mural thickening involving a majority of the colon likely reflecting underdistention artifact. ?? The visualized lung bases are clear. No suspicious regional osseous lesions. ?? IMPRESSION: Left adnexal cystic lesion measuring 3.9 x 3.3 cm most consistent with left ovarian cyst ?? Right adnexal cystic lesion measuring 2.4 x 2.1 cm most consistent with right ovarian cyst. ?? Nonobstructive bowel pattern. No free air or inflammatory changes. Normal appendix. ? JOB #: [id number] Electronically Signed By: ?? Signed By: Champ Tran MD Lab Results CBC and Differential?? LATEST RESULTS?? WBC?? 02/05/24 09:35?? 5.9?? RBC?? 02/05/24 09:35?? 4.56?? Hgb?? 02/05/24 09:35?? 14.1?? Hct?? 02/05/24 09:35?? 41.4?? MCV?? 02/05/24 09:35?? 90.7?? MCH?? 02/05/24 09:35?? 31.0?? MCHC?? 02/05/24 09:35?? 34.2?? RDW-CV?? 02/05/24 09:35?? 12.7?? Platelets?? 02/05/24 09:35?? 255?? MPV?? 02/05/24 09:35?? 8.3?? Neutro Auto?? 02/05/24 09:35?? 70.6?? Lymph Auto?? 02/05/24 09:35?? 19.9 ??Low?? [place] Auto?? 02/05/24 09:35?? 7.6?? Eos, Auto?? 02/05/24 09:35?? 0.40?? Basophil Auto?? 02/05/24 09:35?? 1.5 ??High?? Neutro Absolute?? 02/05/24 09:35?? 4.2?? Lymph Absolute?? 02/05/24 09:35?? 1.2?? [place] Absolute?? 02/05/24 09:35?? 0.4?? Eos Absolute?? 02/05/24 09:35?? 0.0?? Baso Absolute?? 02/05/24 09:35?? 0.1? Routine Chemistry?? LATEST RESULTS?? Sodium Level?? 02/05/24 09:35?? 136?? Potassium Level?? 02/05/24 09:35?? 3.8?? Chloride Level?? 02/05/24 09:35?? 102?? CO2?? 02/05/24 09:35?? 26?? Alk Phos?? 02/05/24 09:35?? 32 ??Low?? AST?? 02/05/24 09:35?? 12 ??Low?? ALT?? 02/05/24 09:35?? 13?? BUN?? 02/05/24 09:35?? 10?? Glucose Level?? 02/05/24 09:35?? 99?? Creatinine Level?? 02/05/24 09:35?? 0.80?? BUN/Creat Ratio?? 02/05/24 09:35?? 12.5?? eGFR CKD-EPI?? 02/05/24 09:35?? 106?? Calcium Level?? 02/05/24 09:35?? 9.9?? Protein Total?? 02/05/24 09:35?? 8.2?? Albumin Level?? 02/05/24 09:35?? 5.1?? Globulin?? 02/05/24 09:35?? 3.1?? A/G Ratio?? 02/05/24 09:35?? 1.6?? Bilirubin Total?? 02/05/24 09:35?? 0.8?? Anion Gap?? 02/05/24 09:35?? 8.0?? Lipase Level?? 02/05/24 09:35?? 22?? Osmolality?? 02/05/24 09:35?? 271 ??Low? Testing?? LATEST RESULTS?? U hCG Ql?? 02/05/24 09:24?? Negative? UA Macroscopic?? LATEST RESULTS?? Urine Srce?? 02/05/24 09:24?? Clean Catch?? UA Color?? 02/05/24 09:24?? Yellow?? UA Appear?? 02/05/24 09:24?? Clear?? UA Glucose?? 02/05/24 09:24?? Negative?? UA Bili?? 02/05/24 09:24?? Small?? UA Ketones?? 02/05/24 09:24?? 40?? UA Spec Grav?? 02/05/24 09:24?? 1.020?? UA Blood?? 02/05/24 09:24?? Trace Abnormal?? UA pH?? 02/05/24 09:24?? 7.00?? UA Protein?? 02/05/24 09:24?? Negative?? UA Urobilinogen?? 02/05/24 09:24?? 1.0?? UA Nitrite?? 02/05/24 09:24?? Negative?? UA Leuk Est?? 02/05/24 09:24?? Negative?? UA Culture Ind?.?? 02/05/24 09:24?? No? UA Microscopic?? LATEST RESULTS?? UA WBC?? 02/05/24 09:24?? 0-3?? UA RBC?? 02/05/24 09:24?? 0-3?? UA Squam Epithelial?? 02/05/24 09:24?? 0-3? Electronically Signed on 02/05/2024 12:50 EDT OSMAN Saunders Emergency department Discharge instructions * OSMAN Saunders: PERFORM Event Display: ED Discharge Information Authored Date: [id number] RINKU GARCIA :2000 Age:23 years Sex:Female Visit Date:02/05/2024 Discharge Instructions We would like to thank you for allowing us to assist you with your healthcare needs. The following includes patient education materials and information regarding your injury/illness. Diagnosis from Today's Visit Ovarian cyst Discharge Vitals Temperature??(Temporal Artery) 97.5 ??F (36.4 ??C) Heart Rate??(Peripheral) 102 Respiratory Rate?? 18 Blood Pressure?? 112/83?? SpO2?? 100% Height?? 61.00 in (154.94 cm) Weight?? 130.03 lb (58.97 kg) BMI?? 24.56 Allergies No Known Medication Allergies What to Do Next Instructions from Your Care Team He was seen here for lower abdominal pain due to??bilateral ovarian cysts.?Please continue with??Motrin and warm compresses. ??Pain should resolve??in the next few days. ??I would encourage you tohave a follow-up with your cloth layer??and return with any worsening of abdominal pain or??fevers. You Need to Schedule the Following Appointments Follow Up with??Follow up with specialist When:??Within 1 month You were treated today on an emergency basis; it may be palm to contact your primary care provider to notify them of your visit today. You may have been referred to your regular doctor or a specialist, please follow up as instructed. If your condition worsens or you can't get in to see the doctor, contact the Emergency Department. Education Materials Ovarian Cyst An ovarian cyst is a fluid-filled sac that forms on an ovary. The ovaries are small organs that produce eggs in women. Various types of cysts can form on the ovaries. Some may cause symptoms and require treatment. Most ovarian cysts go away on their own, are not cancerous (are benign), and do not cause problems. What are the causes? Ovarian cysts may be caused by: ? Ovarian hyperstimulation syndrome. This is a condition that can develop from taking fertility medicines. It causes multiple large ovarian cysts to form. ? Polycystic ovarian syndrome (PCOS). This is a common hormonal disorder that can cause ovarian cyststo form, and can cause problems with your period or fertility. ? The normal menstrual cycle. What increases the risk? The following factors may make you more likely to develop this condition: ? Being overweight or obese. ? Taking fertility medicines. ? Taking certain forms of hormonal control. ? Smoking. What are the signs or symptoms? Many ovarian cysts do not cause symptoms. If symptoms are present, they may include: ? Pelvic pain or pressure. ? Pain in the lower abdomen. ? Pain during sex. ? Abdominal swelling. ? Abnormal menstrual periods. ? Increasing pain with menstrual periods. How is this diagnosed? These cysts are commonly found during a routine pelvic exam. You may have tests to find out more about the cyst, such as: ? Ultrasound. ? CT scan. ? MRI. ? Blood tests. How is this treated? Many ovarian cysts go away on their own without treatment. Your health care provider may want to check your cyst regularly for 2???3 months to see if it changes. If you are in menopause, it is especially important to have your cyst monitored closely because menopausal women have a higher rate of ovarian cancer. When treatment is needed, it may include: ? Medicines to help relieve pain. ? A procedure to drain the cyst (aspiration). ? Surgery to remove the whole cyst (cystectomy). ? Hormone treatment or control pills. These methods are sometimes used to help keep cysts from coming back. ? Surgery to remove the ovary (oophorectomy). Follow these instructions at home: ? Take [id number] and prescription medicines only as told by your health care provider. ? Ask your health care provider if any medicine prescribed to you requires you to avoid driving or using machinery. ? Get regular pelvic exams and Pap tests as often as told by your health care provider. ? Return to your normal activities as told by your health care provider. Ask your health care provider what activities are safe for you. ? Do not use any products that contain nicotine or tobacco, such as cigarettes, e- cigarettes, and chewing tobacco. If you need help quitting, ask your health care provider. ? Keep all follow-up visits. This is important. Contact a health care provider if: ? Your periods are late, irregular, painful, or they stop. ? You have pelvic pain that does not go away. ? You have pressure on your bladder or trouble emptying your bladder completely. ? You have any of the following: ? A feeling of fullness. ? You are gaining weight or losing weight without changing your exercise and eating habits. ? Pain, swelling, or bloating in the abdomen. ? Loss of appetite. ? Pain and pressure in your back and pelvis. ? You think you may be . Get help right away if: ? You have abdominal or pelvic pain that is severe or gets worse. ? You cannot eat or drink without vomiting. ? You suddenly develop a fever or chills. ? Your menstrual period is much heavier than usual. Summary ? An ovarian cyst is a fluid-filled sac that forms on an ovary. ? Some ovarian cysts may cause symptoms and require treatment. ? These cysts are commonly found during a routine pelvic exam. ? Many ovarian cysts go away on their own without treatment. This information is not intended to replace advice given to you by your health care provider. Make sure you discuss any questions you have with your health care provider. Document Revised: 12/29/2020 Document Reviewed: 12/29/2020 [employer] Patient Education ?? 2022 [employer] Tests Performed Radiology CT Abdomen and Pelvis w/ Contrast 02/05/2024 11:36 EDT Medications and Immunizations Administered Given Sodium Chloride 0.9%, 1000 mL, Hydration Bolus acetaminophen, 1000 mg, IV Piggyback ondansetron, 4 mg, IV Push Lab Test Name Test Result Date/Time WBC 5.9 K/mcL 02/05/2024 09:35 EDT RBC 4.56 Million/mcL 02/05/2024 09:35 EDT Hgb 14.1 g/dL 02/05/2024 09:35 EDT Hct 41.4 % 02/05/2024 09:35 EDT MCV 90.7 fL 02/05/2024 09:35 EDT MCH 31.0 pg 02/05/2024 09:35 EDT MCHC 34.2 g/dL 02/05/2024 09:35 EDT RDW-CV 12.7 % 02/05/2024 09:35 EDT Platelets 255 K/mcL 02/05/2024 09:35 EDT MPV 8.3 fL 02/05/2024 09:35 EDT Neutro Auto 70.6 % 02/05/2024 09:35 EDT Lymph Auto 19.9 % 02/05/2024 09:35 EDT [place] Auto 7.6 % 02/05/2024 09:35 EDT Eos, Auto 0.40 % 02/05/2024 09:35 EDT Basophil Auto 1.5 % 02/05/2024 09:35 EDT Neutro Absolute 4.2 K/mcL 02/05/2024 09:35 EDT Lymph Absolute 1.2 K/mcL 02/05/2024 09:35 EDT [place] Absolute 0.4 K/mcL 02/05/2024 09:35 EDT Eos Absolute 0.0 K/mcL 02/05/2024 09:35 EDT Baso Absolute 0.1 K/mcL 02/05/2024 09:35 EDT Sodium Level 136 mmol/L 02/05/2024 09:35 EDT Potassium Level 3.8 mmol/L 02/05/2024 09:35 EDT Chloride Level 102 mmol/L 02/05/2024 09:35 EDT CO2 26 mmol/L 02/05/2024 09:35 EDT Alk Phos 32 IntlUnit/L 02/05/2024 09:35 EDT AST 12 IntlUnit/L 02/05/2024 09:35 EDT ALT 13 IntlUnit/L 02/05/2024 09:35 EDT BUN 10 mg/dL 02/05/2024 09:35 EDT Glucose Level 99 mg/dL 02/05/2024 09:35 EDT Creatinine Level 0.80 mg/dL 02/05/2024 09:35 EDT BUN/Creat Ratio 12.5 02/05/2024 09:35 EDT eGFR CKD-EPI 106 mL/min/1.73 m2 02/05/2024 09:35 EDT Calcium Level 9.9 mg/dL 02/05/2024 09:35 EDT Protein Total 8.2 g/dL 02/05/2024 09:35 EDT Albumin Level 5.1 g/dL 02/05/2024 09:35 EDT Globulin 3.1 g/dL 02/05/2024 09:35 EDT A/G Ratio 1.6 g/dL 02/05/2024 09:35 EDT Bilirubin Total 0.8 mg/dL 02/05/2024 09:35 EDT Anion Gap 8.0 02/05/2024 09:35 EDT Lipase Level 22 unit/L 02/05/2024 09:35 EDT Osmolality 271 mOsm/kg 02/05/2024 09:35 EDT U hCG Ql Negative 02/05/2024 09:24 EDT Urine Srce Clean Catch 02/05/2024 09:24 EDT UA Color YELLOW. 02/05/2024 09:24 EDT UA Appear CLEAR. 02/05/2024 09:24 EDT UA Glucose NEGATIVE 02/05/2024 09:24 EDT UA Bili SMALL Clinitek 02/05/2024 09:24 EDT UA Ketones 40 02/05/2024 09:24 EDT UA Spec Grav 1.020 02/05/2024 09:24 EDT UA Blood TRACE 02/05/2024 09:24 EDT UA pH 7.00 02/05/2024 09:24 EDT UA Protein NEGATIVE 02/05/2024 09:24 EDT UA Urobilinogen 1.0 02/05/2024 09:24 EDT UA Nitrite NEGATIVE 02/05/2024 09:24 EDT UA Leuk Est NEGATIVE 02/05/2024 09:24 EDT UA Culture Ind?. No 02/05/2024 09:24 EDT UA WBC 0-3 02/05/2024 09:24 EDT UA RBC 0-3 02/05/2024 09:24 EDT UA Squam Epithelial 0-3 02/05/2024 09:24 EDT Patient/Creative Writing Teacher Signature Patient Name:RINKU GARCIA I have received this information and my questions have been answered. Patient/Creative Writing Teacher Name: Patient/Creative Writing Teacher Signature: Relationship to Patient: Witness Name/Signature: Date: Electronically Signed on: 02/05/2024 12:09 EDTSigned by:POLLY
--- OUTSIDE RECORDS SUMMARY | 2024-06-10 12:26 | XMS_ITS | Encounter Summary ---
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 Care Teams General Supervisor Relationship Specialty Start Date End Date None None PCP - General 06/05/21 documented as of this encounter
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
--- OUTSIDE RECORDS SUMMARY | 2024-06-10 12:26 | XMS_ITS | Encounter Summary ---
[place] [address] Care Team Providers Care Case Investigator Name Role Phone None Primary Care Provider Unavailabl e Reason for Referral * Consultation (Routine) - Closed Specialty Diagnoses / Procedures Referred By Oswaldo hagan Referred To Contact Maxillofacial Surgery Diagnoses Extraction of tooth needed WISDOM EXTRA[place] [address] [facility] [address] [place] [id number] Referral ID Status Reason Start Date Expiration Date V isits Requested Visits Authorized [id number] Closed Consult, Test & Treat 10/23/2021 10/23/2022 1 1 Encounter Details Date Type Department Care Team (Latest Contact Info) Description 10/23/2021 Transcribe Orders [place] [id number] Glo Llamas Extraction of tooth needed Social History Tobacco Use Types Packs/Day Years Used Date Smoking Tobacco: Every Day Smokeless Tobacco: Never Sex and Gender Information Value Date Recorded Sex Assigned at Not on file Gender Identity Not on file Sexual Orientation Not on file documented as of this encounter Plan of Treatment Scheduled Referrals Name Type Priority Associated Diagnoses Order Schedule Referral to Maxillofacial Surgery Outpatient Referral Routine Extraction of tooth needed Ordered: 10/23/2021 documented as of this encounter Visit Diagnoses Diagnosis Extraction of tooth needed documented in this encounter Care Teams Case Investigator Relationship Specialty Start Date End Date None None PCP - General 06/05/21 documented as of this encounter
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
--- OUTSIDE RECORDS SUMMARY | 2024-06-10 12:26 | XMS_ITS | Encounter Summary ---
Author Organization [facility] Address [facility] [place] [address] Care Team Providers Care Entry Level Sales Associate Name Role Phone None Primary Care Provider Unavailabl e Encounter Details Date Type Department Care Team (Latest Contact Info) Description 08/07/2021 8:05 AM EST - 08/07/2021 11:59 PM EST Hospital Encounter XRay at [address] [place] [address] Andrea Thompson MD [facility] [place] [address] Closed displaced transverse fracture of shaft of [...] Date End Date oxyCODONE (Roxicodone) 5 mg TabletIndications:Ot her fracture of shaft of right femur, initial [...] for Nausea. 15 tablet 1 06/07/2021 06/07/2022 enoxaparin (Lovenox) 40 mg/0.4 mL Syringe Inject 0.4 mLs subcutaneously nightly. 12 mL 06/07/2021 10/05/2021 documented as of this encounter Plan of Treatment Not on file documented as of this encounter Procedures Procedure Name Priority Date/Time Associated Diagnosis Comments XR FEMUR 2 VIEWS RIGHT Routine 08/07/2021 8:15 AM EST Closed displaced transverse fracture of shaft of right femur with routine healing, subsequent encounter documented in this encounter Results * XR Femur 2 views Right (Generic) (08/07/2021 8:15 AM EST) Anatomical Region Laterality Modality Thigh Right Digital Radiogra phy Impressions 08/07/2021 8:45 AM EST Healing proximal right femoral diaphyseal fracture with unchanged alignment. No evidence of hardware failure. Thank you for letting us participate in the care of this patient. ??If you are a health care provider and have any questions regarding this report, please contact the number below. ??For patients who have questions please contact the health landcare facilitator that requested your imaging first. ? Narrative 08/07/2021 8:45 AM EST EXAMINATION: XR FEMUR 2 VIEWS RIGHT (GENERIC) CLINICAL HISTORY: s/p IMN right femur 06/06/21 TECHNIQUE: 2 views RIGHT femur COMPARISON: 06/19/2021 FINDINGS: As before, there is an intramedullary nail within the right femur. Proximal and distal retention hardware with expected appearance. No abnormal lucency surrounding the hardware. There is early bony bridging at the proximal diaphyseal fracture. Alignment unchanged from prior. Soft tissues are normal. Procedure Note Parveen Villagran MD - 08/07/2021 EXAMINATION: XR FEMUR 2 VIEWS RIGHT (GENERIC) CLINICAL HISTORY: s/p IMN right femur 06/06/21 TECHNIQUE: 2 views RIGHT femur COMPARISON: 06/19/2021 FINDINGS: As before, there is an intramedullary nail within the right femur.Proximal and distal retention hardware with expected appearance. No abnormal lucency surrounding the hardware. There is early bony bridging at the proximal diaphyseal fracture. Alignment unchanged from prior. Soft tissues arenormal. IMPRESSION Healing proximal right femoral diaphyseal fracture with unchangedalignment. No evidence of hardware failure. Thank you for letting us participate in the care of this patient. If youare a health care provider and have any questions regarding this report,please contact the number below. For patients who have questions please contactthe health landcare facilitator that requested your imaging first. Andrea Thompson MD IMG DX ORDERABLES documented in this encounter Visit Diagnoses Diagnosis Closed displaced transverse fracture of shaft of right femur with routine healing, subsequent encounter documented in this encounter Care Teams Entry Level Sales Associate Relationship Specialty Start Date End Date None None PCP - General 06/05/21 documented as of this encounter
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
--- OUTSIDE RECORDS SUMMARY | 2024-06-10 12:26 | XMS_ITS | Encounter Summary ---
Author Organization [facility] [place] [address] Care Team Providers Care Head Porter Baggage Name Role Phone None Primary Care Provider Unavailabl e Reason for Referral * Physical Therapy (Routine) - Closed Specialty Diagnoses / Procedures Referred By Oswaldo t Referred To Contact Physical Therapy Diagnoses Closed displaced transverse fracture of shaft of right femur with routine healing, subsequent encounter Andrea Thompson MD [facility] [place] [address] Referral ID Status Reason Start Date Expiration Date V isits Requested Visits Authorized [id number] Closed Evaluate and Treat 08/07/2021 02/03/2022 12 12 Reason for Visit * Reason Comments Follow-up R diaphyseal femur f x //DOI 06-05-2021 DOS 06-06-2021 Encounter Details Date Type Department Care Team (Late st Contact Info) Description 08/07/2021 9:00 AM EST Office [place] [address] Andrea Thompson MD [facility] [place] [address] Closed displaced transverse fracture of shaft of [...] Sign Reading Time Taken Comments Blood Pressure 118/66 08/07/2021 8:25 AM EST Pulse 108 08/07/2021 8:25 AM EST Temperature - - Respiratory Rate - - Oxygen Saturation - - Inhaled Oxygen Concentration - - Weight 56.7 kg (125 lb) 08/07/2021 8:25 AM EST Height 154.9 cm (5' 1) 08/07/2021 8:25 AM EST Body Mass Index 23.62 08/07/2021 8:25 AM EST documented in this encounter Progress Notes * Andrea Thompson MD - 08/07/2021 9:00 AM EST [facility] Jacqueline Cheema returns for follow-up 8 weeks s/p right femur IMN on 06/06/21. She reports she is doing well. Her pain is well controlled, only requiring seldom ibuprophen or tylenol. She has been full weight bearing, without assistive devices at home, walker out of home. She does feel like she hasright leg weakness and occasional knee buckling. She has had no issues with her incisions. She still smokes 1/2 a pack per day. Denies any fevers night sweats or chills. She has no other complaints today, and has a negative review of systems. [facility] FollowUp 08/07/2021 Health in general Very Good [...] In general she is a well appearing 20 y.o. female who is no acute distress, and was calm and cooperative throughout the examination. Examination of the Right leg reveals the incisions are well healed. Minimal swelling. No erythema or signs of infection. EPL/FPL/Intrinsics/EHL/FHL/TA/GC are intact. Capillary refill is < 3 seconds. Sensation to light touch is intact throughout. Knee ROM is full.Femur rotational profile is same as contralateral side. Radiographs: 4 views of the right femur were obtained and reviewed. This demonstrates maintained alignment and reduction compared to prior radiographs. There are no changes in implant position or evidence of implant failure or loss of fixation. Fracture lines are visible, minimal callous seen. No other osseous a bnormalities. Assessment and Plan: Jacqueline Cheema is a 20 y.o. female who returns for follow-up 8 weeks s/p surgery. She is doing well. Her radiographs show minimal callous but no change in implant position or alignment. -Weight Bearing Status: WBAT RLE -Will begin formal PT to work on strengthening, ROM, gait training, and proprioception -Follow-up in 8 weeks for clinical evaluation and xrays of the right femur -Smoking cessation counseling was given, she will try to work on reducing/quitting smoking as she heals. This plan was discussed with the patient and she is in agreement. All of the patient's questions were answered. Andrea Thompson MD Department of Orthopaedic Surgery 08/07/21 documented in this encounter Plan of Treatment Scheduled Referrals Name Type Priority Associated Diagnoses Orde r Schedule Referral to Physical Therapy Outpatient Referral Routine Closed displaced transverse fracture of shaft of right femur with routine healing, subsequent encounter Ordered: 08/07/2021 documented as of this encounter Results * [...] who have questions please contact the health caretaker resort that requested your imaging first. ? Narrative [...] patients who have questions please contactthe health caretaker resort that requested your imaging first. Andrea Thompson MD IMG DX ORDERABLES documented in this encounter Visit Diagnoses Diagnosis Closed displaced transverse fracture of shaft of right femur with routine healing, subsequent encounter Closed displaced transverse fracture of shaft of right femur with routine healing, subsequent encounter documented in this encounter Care Teams Head Porter Baggage Relationship Specialty Start Date End Date None None PCP - General 06/05/21 documented as of this encounter
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
--- OUTSIDE RECORDS SUMMARY | 2024-06-10 12:27 | XMS_ITS | Encounter Summary ---
Author Organization [facility] Address [address] [place] [address] Care Team Providers Care Turbo Generator Oiler Name Role Phone Unknown, Provider Primary Care Provider Unava ilable Encounter Details Date Type Department Care Team (Late st Contact Info) Description 08/28/[address] [facility] Pathology & Laboratory Medicine - [address] [address] Marilia Dee MD [address] [place] [address],[address] [phone] Encounter for other general examination Social History Tobacco Use Types Packs/Day Years Used Date Smoking Tobacco: Never Assessed Interpersonal Safety Answer Date Record ed Physically Hurt Never 08/30/2020 Verbally Threaten Not on file 08/30/2020 Sex and Gender Information Value Date Recorded Sex Assigned at Not on file Gender Identity Not on file Sexual Orientation Not on file documented as of this encounter Plan of Treatment Not on file documented as of this encounter Procedures Procedure Name Priority Date/Time Associated Diagnosis Comments PAP TEST Today 08/23/2022 15:00 EST Encounter for other general examination documented in this encounter Results * PAP TEST (08/23/2022 15:00 EST) Specimens A. Cervix and/or Endocervix , ThinPrep Imaging System with Manual Evaluation 09/04/2022 9:15 EST [facility] Specimen Adequacy Satisfactory for Evaluation - transformation zone component present 09/04/2022 9:15 EST [facility] General Categorization Epithelial Cell Abnormality 09/04/2022 9:15 EST [facility] Descriptive Diagnosis Squamous Cell Abnormality - High grade squamous intraepithelial lesion (HSIL). 09/04/2022 9:15 [facility] Educational Comments [facility] recommends following the ASCCP's management guidelines which may be found at www.asccp.org 09/04/2022 9:15 [facility] Attestation By the signature below, the attending physician certifies that they have personally conducted a gross and/or microscopic examination of the described specimens and rendered or confirmed the above diagnosis. 09/04/2022 9:15 [facility] at 0915 Clinical History See below 09/04/19 9:15 [facility] Performing Lab [facility] 09/04/2022 9:15 [facility] Scanned Images 09/04/2022 9:15 [facility] Papanicolaou smear specimen (specimen) CERVIX UTERI STRUCTURE / Unknown 08/23/2022 15:00 EST 08/28/2022 12:31 EST Marilia Dee MD PATHOLOGY ORDERABLES Performing Organization Address City/State/[facility] Co de Phone Number [facility] [address] [place] [address] documented in this encounter Visit Diagnoses Diagnosis Encounter for other general examination documented in this encounter Care Teams Turbo Generator Oiler Relationship Specialty Start Date End Date Unknown, Provider, PCP - General 08/05/21 documented as of this encounter
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
--- OUTSIDE RECORDS SUMMARY | 2024-06-10 12:27 | XMS_ITS | Encounter Summary ---
Author Organization [facility] Address [address] [place] [address] Care Team Providers Care Staff Toxicologist Name Role Phone Unknown, Provider Primary Care Provider Unava ilable Encounter Details Date Type Department Care Team (Late st Contact Info) Description 10/02/2022 Lab Requisition [facility] Pathology & Laboratory Medicine - [address] [address] María Morales [address] [place] [address] [place] [id number] Encounter for other general examination Social History [...] Procedure Name Priority Date/Time Associated Diagnosis Comments SURGICAL PATHOLOGY Today 10/01/2022 16 :26 EST Encounter for other general examination documented in this encounter Results * SURGICAL PATHOLOGY (10/01/2022 16:26 EST) Note to Patient The following pathology results have been interpreted by your pathologist and may be available to you before your health provider has had the opportunity to review them. Please allow time for your provider to receive these results and explore management options, if applicable. 10/03/2022 15:04 EST [facility] Final Diagnosis A. FALLOPIAN TUBE, RIGHT, SALPINGECTOMY: -Ectopic gestation and hematosalpinx. 10/03/2022 15:04 EST [facility] Attestation By the signature below, the attending physician certifies that they have 1) personally conducted a gross and/or microscopic examination of the described specimen(s), and/or personally interpreted the results of laboratory testing of the described specimen(s), and 2) personally rendered or confirmed the above diagnosis. 10/03/2022 15:04 [facility] at 1504 Clinical History Ectopic 10/03/2022 15:04 [facility] Gross Description A. Received in formalin labelled with proper patient identification (initials B, D) and R fallopian tube is an intact fallopian tube, 5.5 cm in length and ranging from 1.0-2.2 cm in diameter. The serosa is smooth brown purple. Protruding from the lumen at the fimbriated end is a 2.0 x 1.5 x 0.5 cm aggregate of blood clot. Sections through the fallopian tube show a markedly dilated lumen containing blood clot. An obvious gestational cavity is not identified. Villous tissue is not obvious. Sewer Head sections are submitted as follows: BLOCK RAO A1-A2- tubal fimbria, entirely submitted A3-A7- pharmaceutical specialty representative cross-sections OSMAN LESLIE(ASCP) 10/02/2022 10:18 10/03/2022 15:04 [facility] Performing Lab [facility] 10/03/2022 15:04 [facility] Scanned Images 10/03/2022 15:04 [facility] Tissue ENTIRE FALLOPIAN TUBE / Unknown 10/01/2022 16:26 EST 10/02/2022 5:59 EST María Morales PATHOLOGY ORDERABLES [facility] [address] [place] [address] documented in this encounter Visit Diagnoses Diagnosis Encounter for other general examination documented in this encounter Care Teams Staff Toxicologist Relationship Specialty Start Date End Date Unknown, Provider, PCP - General 08/05/21 documented as of this encounter
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
--- OUTSIDE RECORDS SUMMARY | 2024-06-10 12:27 | XMS_ITS | Encounter Summary ---
Author Organization [facility] [place] [address] Care Team Providers Care Site Project Manager Name Role Phone None Primary Care Provider Unavailabl e Encounter Details Date Type Department Care Team (Late st Contact Info) Description 06/05/2021 4:35 PM EDT Ancillary Procedure Radiology Library at [facility] [place] [phone] Social History Tobacco Use Types Packs/Day Years Used Date Smoking Tobacco: Never Assessed Sex and Gender Information Value Date Recorded Sex Assigned at Not on file Gender Identity Not on file Sexual Orientation Not on file documented as of this encounter Plan of Treatment Not on file documented as of this encounter Procedures Procedure Name Priority Date/Time Associated Diagnosis Comments FILM LIBRARY STORAGE ONLY CT CHEST ABDOMEN PELVIS STAT 06/05/2021 4:31 PM EDT documented in this encounter Results * Film Library- Storage Only CT Chest Abdomen Pelvis (06/05/2021 4:31 PM EDT) Narrative RAD - 06/05/2021 4:31 PM EDT This exam is auto-finalizing. It's purpose is for storage only. Champ Mercado MD IMG FILM LIBRARY ORD ERABLES [facility] [place] documented in this encounter Visit Diagnoses Not on filedocumented in this encounter Care Teams Site Project Manager Relationship Specialty Start Date End Date None None PCP - General 06/05/21 documented as of this encounter
--- OUTSIDE RECORDS SUMMARY | 2024-06-10 12:27 | XMS_ITS | Encounter Summary ---
Author Organization [facility] [place] [address] Care Team Providers Care Purchasing Engineer Name Role Phone None Primary Care Provider Unavailabl e Encounter Details Date Type Department Care Team (Late st Contact Info) Description 06/05/2021 4:45 PM EDT Ancillary Procedure Radiology [facility] at [facility] [place] [phone] Social History Tobacco Use Types Packs/Day Years [...] Associated Diagnosis Comments FILM LIBRARY STORAGE ONLY DX LOWER EXTREMITY STAT 06/05/2021 4:41 PM EDT documented in this encounter Results * Film Library- Storage Only DX Lower Extremity (06/05/2021 4:41 PM EDT) Narrative RAD - 06/05/2021 4:41 PM EDT This exam is auto-finalizing. It's purpose is for storage only. Champ Mercado MD IMG FILM LIBRARY ORD ERABLES [place] documented in this encounter Visit Diagnoses Not on filedocumented in this encounter Care Teams Purchasing Engineer Relationship Specialty Start Date End Date None None PCP - General 06/05/21 documented as of this encounter
--- OUTSIDE RECORDS SUMMARY | 2024-06-10 12:27 | XMS_ITS | Encounter Summary ---
Author Organization [facility] [place] [address] Care Team Providers Care Pipeline Integrity Engineer Name Role Phone None Primary Care Provider Unavailabl e Encounter Details Date Type Department Care Team (Late st Contact Info) Description 06/05/2021 6:45 PM EDT Ancillary Procedure Radiology Library at [facility] [place] [phone] Social History Tobacco Use Types Packs/Day Years [...] Diagnosis Comments FILM LIBRARY STORAGE ONLY CT SPINE STAT 06/05/2021 6:41 PM EDT documented in this encounter Results * Film Library- Storage Only CT Spine (06/05/2021 6:41 PM EDT) Narrative TAI - 06/05/2021 6:41 PM EDT This exam is auto-finalizing. It's purpose is for storage only. Champ Mercado MD IMG FILM LIBRARY ORD ERABLES TAI [place] documented in this encounter Visit Diagnoses Not on filedocumented in this encounter Care Teams Pipeline Integrity Engineer Relationship Specialty Start Date End Date None None PCP - General 06/05/21 documented as of this encounter
--- OUTSIDE RECORDS SUMMARY | 2024-06-10 12:27 | XMS_ITS | Encounter Summary ---
Author Organization [facility] Address [address] [place] [address] Care Team Providers Care Clinical Trial Leader Name Role Phone Unavailable Primary Care Provider Unavailabl e Encounter Details Date Type Department Care Team (Late st Contact Info) Description 08/30/2020 Results Only [facility]ISM [phone] Carmelo Melendez MD [address] [place] [address], [facility] [address] [place] [address] Social History Tobacco Use Types Packs/Day Years [...] Procedure Name Priority Date/Time Associated Diagnosis Comments HIV 1/2 AB, P24 AG - [facility] Routine 08/30/2020 15:57 EST documented in this encounter Results * HIV 1/2 AB, P24 AG - [facility] (08/30/2020 15:57 EST) HIV 1/2 AB, P24 AG - [facility] Negative Negative 09/01/2020 17:14 EST [facility] 08/30/2020 15:5 7 EST 09/01/2020 15:25 EST Carmelo Melendez MD CHEMISTRY & BLOOD G ORDERABLES [facility] [address] [place] [address] documented in this encounter Visit Diagnoses Not on filedocumented in this encounter
--- OUTSIDE RECORDS SUMMARY | 2024-06-10 12:27 | XMS_ITS | Encounter Summary ---
Author Organization [facility] Address [address] [place] [address] Care Team Providers Care Vertical Borer Name Role Phone Unavailable Primary Care Provider Unavailabl e Reason for Visit * (Routine/Next Available) - Receiving Office to Obtain Authorization Specialty Diagnoses / Procedures Referred By Contac t Referred To Contact Procedures CT OUTSIDE IMAGES NEURO Unknown, Provider, MAIN Referral ID Status Reason Start Date Expiration Date Visits Requested Visits Authorized [id number] Receiving Office to Obtain Authorization 06/05/2021 1 1 Encounter Details Date Type Department Care Team (Latest Contact Info) Description 06/05/2021 18:17 EDT - 06/05/2021 23:59 EDT Hospital Encounter [facility] Secondary Reads [place] Discharge Disposition: Home or Self Care Social History Tobacco Use Types Packs/Day Years Used Date Smoking Tobacco: Never Assessed Interpersonal Safety Answer Date Record ed Physically Hurt Never 08/30/2020 Verbally Threaten Not on file 08/30/2020 Sex and Gender Information Value Date Recorded Sex Assigned at Not on file Gender Identity Not on file Sexual Orientation Not on file documented as of this encounter Discharge Disposition Disposition Code Departure Means Destination Home or Self Care documented in this encounter Plan of Treatment Not on file documented as of this encounter Procedures Procedure Name Priority Date/Time Associated Diagnosis Comments CT OUTSIDE IMAGES NEURO Routine 06/05/2021 18:17 EDT documented in this encounter Results * CT OUTSIDE IMAGES NEURO (06/05/2021 18:17 EDT) Narrative 06/05/2021 18:17 EDT This is a non-reportable exam. Provider Unknown MD [facility] OTHER IMAGING OR DERABLES documented in this encounter Visit Diagnoses Not on filedocumented in this encounter
--- OUTSIDE RECORDS SUMMARY | 2024-06-10 12:27 | XMS_ITS | Encounter Summary ---
Author Organization [facility] Address [address] [place] [address] Care Team Providers Care Custom Grinder Name Role Phone Unknown, Provider Primary Care Provider Unava ilable Encounter Details Date Type Department Care Team (Late st Contact Info) Description 07/04/2022 Lab Requisition [facility] Pathology & Laboratory Medicine - [address] [address] Outr Resulting Lab, Provider Social History Tobacco Use Types Packs/Day Years [...] Procedure Name Priority Date/Time Associated Diagnosis Comments CHLAMYDIA/N. GONORRHOEAE AMPLIFIED NUCLEIC ACID Routine 07/03/2022 15:40 EST documented in this encounter Results * CHLAMYDIA/N. GONORRHOEAE AMPLIFIED RNA (07/03/2022 15:40 EST) Neisseria gonorrhoeae Result Negative Negative 07/05/2022 17:[address] [facility] Chlamydia trachomatis Result Negative Negative 07/05/2022 17:[address] [facility] Swab ENTIRE ENDOCERVIX / Unknown 07/03/2022 15:40 EST 07/04/2022 18:00 EST Provider Outr Resulting Lab MICROBIOLOGY - GENERAL ORDERABLES [facility] [address] [place] [address] documented in this encounter Visit Diagnoses Not on filedocumented in this encounter Care Teams Custom Grinder Relationship Specialty Start Date End Date Unknown, Provider, PCP - General 08/05/21 documented as of this encounter
--- OUTSIDE RECORDS SUMMARY | 2024-06-10 12:27 | XMS_ITS | Encounter Summary ---
Author Organization [facility] Address [address] [place] [address] Care Team Providers Care Wastewater Engineer Name Role Phone Unknown, Provider Primary Care Provider Unava ilable Encounter Details Date Type Department Care Team (Late st Contact Info) Description 11/21/2022 Lab Requisition [facility] Pathology & Laboratory Medicine - [address] [address] Mar[facility]ales [facility] [place] [phone] Encounter for other general examination Social History [...] Date/Time Associated Diagnosis Comments SURGICAL PATHOLOGY Today 11/20/2022 11 :40 EDT Encounter for other general examination documented in this encounter Results * SURGICAL PATHOLOGY (11/20/2022 11:40 EDT) Note to Patient The following pathology results have been interpreted by your pathologist and may be available to you before your health provider has had the opportunity to review them. Please allow time for your provider to receive these results and explore management options, if applicable. 11/23/2022 11:16 EDT [facility] Final Diagnosis A. CERVIX, 12 O'CLOCK, BIOPSY: - High grade squamous intraepithelial lesion (HSIL, MEGHNA II). B. ENDOCERVIX, CURETTAGE: - Fragments of benign endocervical epithelium. 11/23/2022 11:16 EDT [facility] Attestation There was significant resident/fellow involvement in the diagnostic evaluation of this case. By the signature below, the attending physician certifies that they have personally conducted a gross and/or microscopic examination of the described specimens and rendered or confirmed the above diagnosis. 11/23/2022 11:16 T [facility] at 1116 Clinical History HSIL Pap 11/23/2022 11:16 EDT [facility] Gross Description A. Received in formalin labelled with proper patient identification (initials B, D) and 1. Cervical Bx 12 o'clock is a single bond tissue (0.5 x 0.2 x 0.1 cm). Submitted intact in A1. B. Received in formalin labelled with proper patient identification (initials B, D) and 2. ECC is an aggregate of mildly blood-tinged mucinous material (1.3 x 0.9 x 0.1 cm). Entirely submitted in B1. Eloise Kapoor 11/21/2022 10:22 11/23/2022 11:16 EDT [facility] Resident/Devante w: Mary Kay López DO 11/23/2022 11:16 EDT [facility] Performing Lab [facility] 11:16 T [facility] Scanned Images 11/23/2022 11:16 T [facility] Tissue ENTIRE ENDOCERVIX / Unknown 11/20/2022 11:40 EDT 11/21/2022 8:08 EDT Tissue specimen (specimen) ENDOCERVICAL STRUCTURE / Unknown 11/20/2022 11:40 EDT 11/21/2022 8:08 EDT María Morales PATHOLOGY ORDERABLES [facility] [address] [place] [address] documented in this encounter Visit Diagnoses Diagnosis Encounter for other general examination documented in this encounter Care Teams Wastewater Engineer Relationship Specialty Start Date End Date Unknown, Provider, PCP - General 08/05/21 documented as of this encounter
--- OUTSIDE RECORDS SUMMARY | 2024-06-10 12:27 | XMS_ITS | Clinical Summary ---
Author Organization [facility] Address [address] [place] [address] Care Team Providers Care Sand Cutter Name Role Phone Unknown, Provider Primary Care Provider Unava ilable Social History Tobacco Use Types Packs/Day Years Used Date Smoking Tobacco: Never Assessed Interpersonal Safety Answer Date Record ed Physically Hurt Never 08/30/2020 Verbally Threaten Not on file 08/30/2020 Sex and Gender Information Value Date Recorded Sex Assigned at Not on file Gender Identity Not on file Sexual Orientation Not on file Plan of Treatment Health Maintenance Due Date Last Done Comments Hepatitis B Vaccine (1 of 3 - 19+ 3-dose series) 08/31 COVID-19 Vaccine ( - 2022- season) 2023 Hepatitis C Screen Completed 08/29/2020 Procedures Procedure Name Priority Date/Time Associated Diagnosis Comments HEPATITIS C AB W REFLEX TO HCV RNA BY PCR Routine 08/29/2020 14:20 EST from Last 3 Months or Most Recently Relevant to Health Maintenance Results * HEPATITIS C AB W REFLEX TO HCV RNA BY PCR (08/29/2020 14:20 EST) Hep C Antibody Negative Negative 2020 11:24 EST [facility] Blood VENOUS BLOOD / Unknown 08/29/2020 14:20 EST 08/30/2020 15:57 EST Provider Outr Resulting Lab CHEMISTRY & BLOOD GAS ORDERABLES [facility] [address] [place] [address] from Last 3 Months or Most Recently Relevant to Health Maintenance Jacqueline Cheema Personal/Family Self [address] [place] [address] Jacqueline Cheema Personal/Family Self [address] [place] [address] Jacqueline Cheema Personal/Family Self [address] [place] [address] Care Teams Sand Cutter Relationship Specialty Start Date End Date Unknown, Provider, PCP - General 08/05/21
--- OUTSIDE RECORDS SUMMARY | 2024-06-10 12:27 | XMS_ITS | Encounter Summary ---
Author Organization [facility] Address [address] [place] [address] Care Team Providers Care Firefighter Name Role Phone Unknown, Provider Primary Care Provider Unava ilable Encounter Details Date Type Department Care Team (Late st Contact Info) Description 01/30/2024 Lab Requisition [facility] Pathology & Laboratory Medicine - [address] [address] Outr Resulting Lab, Provider Social History Tobacco [...] Comments CHLAMYDIA/N. GONORRHOEAE AMPLIFIED NUCLEIC ACID Routine 01/29/2024 16:00 EDT documented in this encounter Results * CHLAMYDIA/N. GONORRHOEAE AMPLIFIED NUCLEIC ACID (01/29/2024 16:00 EDT) Neisseria gonorrhoeae Result Negative Negative 01/31/2024 12:29 EDT [facility] Chlamydia trachomatis Result Negative Negative 01/31/2024 12:29 EDT [facility] Urine URINE / Unknown 01/29/2024 1 6:00 EDT 01/30/2024 17:23 EDT Narrative [facility] - 01/31/2024 12:29 EDT A first catch urine specimen is acceptable for detection of Gonorrhea and Chlamydia, but might detect up to 10% fewer infections when compared with vaginal swab samples. Provider Outr Resulting Lab MICROBIOLOGY - GENERAL ORDERABLES [facility] [address] [place] [address] documented in this encounter Visit Diagnoses Not on filedocumented in this encounter Care Teams Firefighter Relationship Specialty Start Date End Date Unknown, Provider, PCP - General 08/05/21 documented as of this encounter
--- OUTSIDE RECORDS SUMMARY | 2024-06-10 12:27 | XMS_ITS | Encounter Summary ---
Author Organization [facility] Address [address] [place] [address] Care Team Providers Care Public Works Technician Name Role Phone Unknown, Provider Primary Care Provider Unava ilable Encounter Details Date Type Department Care Team (Late st Contact Info) Description 12/27/2023 Lab Requisition [facility] Pathology & Laboratory Medicine - [address] [address] Mar[facility] [place] [phone] Encounter for other general examination Social History [...] Date/Time Associated Diagnosis Comments PAP TEST Today 12/26/2023 1:20 EDT Encounter for other general examination HPV GENOTYPES 16 AND 18/45 Today 12/26/2023 1:20 EDT Encounter for other general examination HPV DNA DETECTION WITH GENOTYPING, PCR Today 12/26/2023 1:20 EDT Encounter for other general examination documented in this encounter Results * HPV GENOTYPES 16 AND 18/45 (12/26/2023 1:20 EDT) HPV High Risk type 16, PCR Negative Negative 01/09/2024 13:33 EDT [facility] HPV18/45 RNA (HPV18/45) Negative Negative 01/09/2024 13:33 EDT [facility] Pap Test CERVIX UTERI STRUCTURE / Unknown 12/26/2023 1:20 EDT 01/07/2024 11:40 EDT María Morales MICROBIOLOGY - GENER AL ORDERABLES Performing Organization Address [facility] de Phone Number [facility] [address] [place] [address] * (ABNORMAL) HUMAN PAPILLOMAVIRUS (HPV) DETECTION-HIGH RISK TYPES (12/26/2023 1:20 EDT) HPV other High Risk types, PCR Positive( A) Negative 01/09/2024 13:33 EDT [facility] Comment:E6 OR E7 mRNA from o ne or more types of HPV types 16,18,31,33,35,39,45,51,52,56,58,59,66, and 68 is detected by machine operator hop worker mediated amplification. High and intermediate risk HPV types are associated with most squamous intraepithelial lesions and cervical cancers. Pap Test CERVIX UTERI STRUCTURE / Unknown 12/26/2023 1:20 EDT 01/07/2024 11:40 EDT María Morales MICROBIOLOGY - GENER AL ORDERABLES Performing Organization Address [facility] de Phone Number [facility] [address] [place] [address] * PAP TEST (12/26/2023 1:20 EDT) Specimens A. Cervix and/or Endocervix , ThinPrep Imaging System with Manual Evaluation 01/09/2024 13:33 T [facility] Specimen Adequacy Satisfactory for Evaluation - transformation zone component present 01/09/2024 13:33 T [facility] General Categorization Epithelial Cell Abnormality 01/09/2024 13:33 EDT [facility] Descriptive Diagnosis Squamous Cell Abnormality - Low grade squamous intraepithelial lesion, cannot exclude high grade squamous intraepithelial lesion (LSIL-H). 01/09/2024 13:33 [facility] Educational Comments There is no ASCCP recommendation specific to the diagnosis above. This diagnosis indicates a greater likelihood of the cervix harboring HSIL compared to a diagnosis of LSIL alone, 64% vs. 14% in our experience. Initial colposcopic evaluation is advised. Should HSIL not be confirmed on colposcopic evaluation and/or biopsy, close follow-up with Pap test and/or repeat colposcopy is advised. In some situations there may be clinical or colposcopic reasons to perform a diagnostic cone biopsy/LEEP. 01/09/2024 13:33 [facility] Attestation By the signature below, the attending physician certifies that they have personally conducted a gross and/or microscopic examination of the described specimens and rendered or confirmed the above diagnosis. 01/09/2024 13:33 [facility] at 1333 Clinical History See below 01/09/20 13:33 [facility] HPV The result for the Human Papillomavirus (HPV) Detection-High Risk Types is Positive . E6 OR E7 mRNA from one or more types of HPV types 16,18,31,33,35,39 ,45,51,52,56,58,5 9,66, and 68 is detected by machine operator hop worker mediated amplification. High and intermediate risk HPV types are associated with most squamous intraepithelial lesions and cervical cancers. Testing was performed on specimen [id number] and was resulted on 01/08/2024 1543 EDT by MARCIAL, LAB INSTRUMENT RESULTS IN 01/09/2024 13:33 [facility] Genotyping 16 & 18/45 The results for the HPV Genotypes 16 and 18/45 are Negative for the HPV16 RNA and Negative for the HPV18/45 RNA (HPV18/45). Testing was performed on specimen [id number] and was resulted on 01/09/2024 1333 EDT by MARCIAL, LAB INSTRUMENT RESULTS IN 01/09/2024 13:33 [facility] Performing Lab [facility] 01/09/2024 13:33 [facility] Scanned Images 01/09/2024 13:33 [facility] Pap Test CERVIX UTERI STRUCTURE / Unknown 12/26/2023 1:20 EDT 12/27/2023 11:04 EDT María Morales PATHOLOGY ORDERABLES [facility] [address] [place], [place] [id number] documented in this encounter Visit Diagnoses Diagnosis Encounter for other general examination documented in this encounter Care Teams Public Works Technician Relationship Specialty Start Date End Date Unknown, Provider, PCP - General 08/05/21 documented as of this encounter
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
--- OUTSIDE RECORDS SUMMARY | 2024-06-10 12:27 | XMS_ITS | Encounter Summary ---
Author Organization [facility] K[place]IN Tian [address] Care Team Providers Care Embedded Linux Developer Name Role Phone None Primary Care Provider Unavailabl e Encounter Details Date Type Department Care Team (Late st Contact Info) Description 06/05/2021 4:30 PM EDT Ancillary Procedure Radiology Library at [facility] [place] [phone] Social History Tobacco Use Types Packs/Day Years [...] Diagnosis Comments FILM LIBRARY STORAGE ONLY CT HEAD AND SPINE STAT 06/05/2021 4:28 PM EDT documented in this encounter Results * Film Library- Storage Only CT Head And Spine (06/05/2021 4:28 PM EDT) Narrative [facility] - 06/05/2021 4:28 PM EDT This exam is auto-finalizing. It's purpose is for storage only. Champ Mercado MD IMG FILM LIBRARY ORD ERABLES [facility] [place] documented in this encounter Visit Diagnoses Not on filedocumented in this encounter Care Teams Embedded Linux Developer Relationship Specialty Start Date End Date None None PCP - General 06/05/21 documented as of this encounter
--- OUTSIDE RECORDS SUMMARY | 2024-06-10 12:27 | XMS_ITS | Encounter Summary ---
Author Organization [facility] Address [address] [place] [address] Care Team Providers Care Religious Healer Name Role Phone Unknown, Provider Primary Care Provider Unava ilable Encounter Details Date Type Department Care Team (Late st Contact Info) Description 08/30/2020 Lab Requisition [facility] Pathology & Laboratory Medicine - [address] [address] Outr Resulting Lab, Provider Social History Tobacco [...] RNA BY PCR Routine 08/29/2020 14:20 EST documented in this encounter Results * HEPATITIS C AB W REFLEX TO HCV RNA BY PCR (08/29/2020 14:20 EST) Hep C Antibody Negative Negative 2020 11:24 EST [facility] Blood VENOUS BLOOD / Unknown 08/29/2020 14:20 EST 08/30/2020 15:57 EST Provider Outr Resulting Lab CHEMISTRY & BLOOD GAS ORDERABLES [facility] [address] [place] [address] documented in this encounter Visit Diagnoses Not on filedocumented in this encounter Care Teams Religious Healer Relationship Specialty Start Date End Date Unknown, Provider, PCP - General 08/05/21 documented as of this encounter
--- OUTSIDE RECORDS SUMMARY | 2024-06-10 12:27 | XMS_ITS | Referral Summary ---
Author Organization [facility] Address [address] [place] [address] Care Team Providers Care Network/Telecom Engineer Name Role Phone Unknown, Provider MD Primary Care Provider Unava ilable Social History Tobacco Use Types Packs/Day Years Used Date Smoking Tobacco: Never Assessed Interpersonal Safety Answer Date Record ed Physically Hurt Never 08/30/2020 Verbally Threaten Not on file 08/30/2020 Sex and Gender Information Value Date Recorded Sex Assigned at Not on file Gender Identity Not on file Sexual Orientation Not on file Plan of Treatment Not on file Procedures Procedure Name Priority Date/Time Associated Diagnosis Comments HEPATITIS C AB W REFLEX TO HCV RNA BY PCR Routine 08/29/2020 14:20 EST from Last 3 Months or Most Recently Relevant to Health Maintenance Results * HEPATITIS C AB W REFLEX TO HCV RNA BY PCR (08/29/2020 14:20 EST) Hep C Antibody Negative Negative 2020 11:24 EST [facility] Blood VENOUS BLOOD / Unknown 08/29/2020 14:20 EST 08/30/2020 15:57 EST Provider Outr Resulting Lab CHEMISTRY & BLOOD GAS ORDERABLES [facility] [address] [place] [address] from Last 3 Months or Most Recently Relevant to Health Maintenance Care Teams Network/Telecom Engineer Relationship Specialty Start Date End Date Unknown, Provider, PCP - General 08/05/21
--- OUTSIDE RECORDS SUMMARY | 2024-06-10 12:27 | XMS_ITS | Encounter Summary ---
Author Organization [facility] Address [address] [place] [address] Care Team Providers Care Aircraft Navigator Name Role Phone Unknown, Provider Primary Care Provider Unava ilable Encounter Details Date Type Department Care Team (Late st Contact Info) Description 08/30/2020 Lab Requisition [facility] Pathology & Laboratory Medicine - [address] [address] Outr Resulting Lab, Provider Social History Tobacco [...] Priority Date/Time Associated Diagnosis Comments HIV 1/2 ANTIGEN AND ANTIBODY, 4TH GENERATION Routine 08/29/2020 14:20 EST documented in this encounter Results * HIV 1/2 ANTIGEN AND ANTIBODY, 4TH GENERATION (08/29/2020 14:20 EST) HIV 1 and 2 Antibody/p24 Antigen, 4th Generation Negative Negative 09/02/2020 9:27 EST [facility] Comment: Testing performed at [place], [place]. If acute HIV-1 infection is suspected in a high risk ??patient, submit plasma specimen for HIV-1 RNA quantitation test. Fourth Generation assay performed on the Siemens Centaur. Blood VENOUS BLOOD / Unknown 08/29/2020 14:20 EST 08/30/2020 15:57 EST Provider Outr Resulting Lab IMMUNOLOGY A ND SEROLOGY ORDERABLES [facility] [address] [place] [address] documented in this encounter Visit Diagnoses Not on filedocumented in this encounter Care Teams Aircraft Navigator Relationship Specialty Start Date End Date Unknown, Provider, PCP - General 08/05/21 documented as of this encounter
[2024-06-10 15:37] LABS: HCT 42.7 % (36.0-46.0); HGB 14.6 g/dL (11.2-15.7); MCH 30.4 pg (27.0-33.0); MCHC 34.2 % (32.0-36.0); MCV 89 fL (80-95); MPV 10.1 fL (8.0-11.0); Platelet Count 289 10^3/uL (130-400); RDW 11.6 % (11.7-14.6); RDW-SD 37.4 fL; WBC 6.26 10^3/uL (4.4-10.8)
[2024-06-10 16:19] LABS: ALT 26 U/L (14-59); AST 17 U/L (15-37); Alkaline Phosphatase 54 U/L (46-116); Anion Gap 11.3 mmol/L (3-11); BUN 9 mg/dL (7-18); Bilirubin, Total 0.41 mg/dL (0.2-1.0); CO2 24.7 mmol/L (21.0-32.0); CREATININE 0.7 mg/dL (0.55-1.02); Calcium 9.3 mg/dL (8.5-10.1); Chloride 106 mmol/L (98-107); Estimated GFR 124.55 (mL/min/1.73m2); Glucose 94 mg/dL (74-106); Sodium 142 mmol/L (136-145); TSH (W/Ref FT4) 0.91 uIU/mL (0.36-3.74); Total Protein 8.1 g/dL (6.4-8.2)
== END 2024-06-10 12:24 | disposition home or self-care (01) ==
LOC: NCHCN 12:23
PROVIDERS: Visit Provider Nurse Practitioner Family
DX: R10.9 Unspecified abdominal pain (principal); F41.9 Anxiety disorder, unspecified
CPT/HCPCS: 80053; 85027; 84443

== ENCOUNTER 2024-06-23 01:50 | Outpatient (CLI) | payer MEDICAID, SELFPAY ==
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
== END 2024-06-23 02:10 ==
PROVIDERS: PCP Nurse Practitioner Family; Visit Provider Obstetrics & Gynecology
DX: N83.202 Unspecified ovarian cyst, left side (principal); R10.2 Pelvic and perineal pain
CPT/HCPCS: 76830; 76856

== ENCOUNTER 2024-12-02 20:18 | Emergency (ER) | payer MEDICAID, SELFPAY ==
[2024-12-02 20:21] VITALS: BP 134/77; PULSE 137; RESP 20; TEMP 36.5; O2SAT 98
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
[2024-12-02 20:57] LABS: Bilirubin Negative (Negative); Blood Moderate (Negative); Clarity Clear (Clear); Glucose Negative (Negative); Ketones Negative (Negative); Leukocyte Esterase Negative (Negative); Nitrite Negative (Negative); Specific Gravity <= 1.005 (1.005-1.025); Urobilinogen 0.2 mg/dL (Up to 0.2)
[2024-12-02 20:59] VITALS: BP 112/67; PULSE 96; RESP 14; O2SAT 100
[2024-12-02 21:01] LABS: Lactate 0.8 mmol/L (<or=2.0)
[2024-12-02 21:02] LABS: Abs Immature Grans 0.02 10^3/uL (0.0-0.06); Absolute Basophil Count 0.08 10^3/uL (0.0-0.2); Absolute Eosinophil Count 0.09 10^3/uL (0.0-0.7); Absolute Lymphocyte Count 2.81 10^3/uL (1.2-3.4); Absolute Monocyte Count 0.59 10^3/uL (0.1-0.8); Basophils % 1.2 %; Eosinophils % 1.3 %; HCT 41.1 % (36.0-46.0); HGB 13.9 g/dL (11.2-15.7); Immature Grans % 0.3 %; Lymphocytes % 40.8 %; MCHC 33.8 % (32.0-36.0); MCV 92 fL (80-95); MPV 9.6 fL (8.0-11.0); Monocytes % 8.6 %; Neutrophils % 47.8 %; Platelet Count 238 10^3/uL (130-400); RBC 4.48 10^6/uL (3.93-5.22); RDW 11.8 % (11.7-14.6); RDW-SD 39.7 fL; WBC 6.89 10^3/uL (4.4-10.8)
[2024-12-02 21:08] LABS: Bacteria Rare HPF (Negative); C & S Indicated? No; Casts Negative LPF (Negative); Crystals Negative HPF (Negative); Epithelial Cells Rare HPF (Negative); Mucus Negative (Negative); RBC 0-2 HPF (0-2); WBC Negative HPF (0-5)
[2024-12-02 21:19] LABS: ALT 31 U/L (14-59); AST 14 U/L (15-37); Albumin 4.1 g/dL (3.4-5.0); Alkaline Phosphatase 45 U/L (46-116); Anion Gap 8.2 mmol/L (3-11); BUN 11 mg/dL (7-18); Bilirubin, Total 0.4 mg/dL (0.2-1.0); CO2 27.8 mmol/L (21.0-32.0); CREATININE 0.8 mg/dL (0.55-1.02); Calcium 9.1 mg/dL (8.5-10.1); Chloride 106 mmol/L (98-107); Estimated GFR 105.45 (mL/min/1.73m2); Glucose 103 mg/dL (74-106); Lipase 29 U/L (<78); Potassium 3.5 mmol/L (3.5-5.1); Sodium 142 mmol/L (136-145); Total Protein 7.3 g/dL (6.4-8.2)
[2024-12-02 21:47] VITALS: BP 112/67; PULSE 96; RESP 14; O2SAT 100
--- NOTE | 2024-12-03 08:37 | W.EDPROG ---
Date of service: 12/03/24 Time of Service: 08:38 Medical Decision Making I placed a fu outpt US order for this pt. Quality:SDOH Health Related Social Needs: No Data to Display Discharge Plan Disposition Patient Disposition: Home Condition: Stable Discharge Details Clinical Impression: Abnormal uterine bleeding Primary Care Provider: KARISSA ROBLEDO ED Provider: Isiah Cabello Home Meds and New Rx's Prescriptions: Continued C-Chris DHA 28 mg iron-1 mg -200 mg capsule 1 cap PO DAILY Qty: 90 4RF acetaminophen [Tylenol Extra Strength] 500 MG tablet 500 mg PO PRN PRN Discharge Instructions Instructions: Bleeding Between Periods Additional Instructions: You were seen in the emergency department for your midcycle bleeding and some lower abdominal pain, the laboratory workup shows no evidence of significant infection, no UTI, no sepsis, as we discussed I am ordering you an outpatient ultrasound, please call ahead and find out what time will be convenient you want to check into the ED for results, you may also call [facility] to see if they can fit you in, you could have an ovarian cyst versus endometriosis or other pathology but I do not suspect any surgical emergency at this time, please return to the emergency department immediately for any severe increase in pain especially with fever, profuse bleeding or any other emergent concerns Referrals: [facility] [Provider Group] KARISSA ROBLEDO, VICE PRESIDENT & GENERAL MANAGER [employer] [Primary Care Provider] - Discharge Orders Other Ambulatory Orders: US pelvis & transvaginal (Routine) Timeframe: 10 Day Facility: [facility] - Location: DIAGNOSTIC IMAGING Ordered By: David Raymundo Discharge Data Discharge Date/Time-TO BE ENTERED AT DEPARTURE: 12/02/24 21:48
== END 2024-12-02 21:48 | disposition home or self-care (01) ==
PROVIDERS: Emergency Provider Physician Assistant; PCP Nurse Practitioner Family
DX: N93.9 Abnormal uterine and vaginal bleeding, unspecified (principal); N83.202 Unspecified ovarian cyst, left side; F17.210 Nicotine dependence, cigarettes, uncomplicated; F17.290 Nicotine dependence, other tobacco product, uncomplicated
CPT/HCPCS: 123; 36415; 80053; 81025; 83690; 99283; 00123; 81003; 81015; 83605; 85025

== ENCOUNTER 2024-12-03 08:53 | Outpatient (CLI) | payer MEDICAID, SELFPAY ==
--- NOTE | 2024-12-03 08:45 | DI.US_ITS ---
Exam(s) US PELVIS TRANSVAGINAL EXAM: US PELVIS TRANSVAGINAL CLINICAL HISTORY: abnl vaginal bleeding,cyst lt ovary,n83.202,n93.9 TECHNIQUE: Transabdominal and transvaginal imaging was performed using standard protocol. COMPARISON: US US OB 1ST TRIMESTER from 05/01/2023 US US PELVIS TRANSVAGINAL from 01/01/2024 US US PELVIS TRANSVAGINAL from 06/23/2024 FINDINGS: UTERUS: Anteverted. 7.6 x 3.4 x 4.3 cm Endometrium: 7 mm Myometrium: Unremarkable. Cervix: Unremarkable. OVARIES: Right: Cyst or mass: None. Left: Cyst or mass: 4.2 centimeter left ovarian cyst, stable size from prior. There are very low lev el echoes. The previous exam showed increased echogenicity material. DOPPLER: Color: Symmetric and uniform flow to both ovaries. No hyperemia. CUL-DE-SAC: Free fluid: Trace IMPRESSION: 1. Normal-appearing uterus with endometrial stripe within normal limits. 2. 4.2 centimeter left ovarian cyst, stable in size. No evidence of torsion. DATA REPOSITORY:
== END 2024-12-03 09:13 ==
PROVIDERS: PCP Nurse Practitioner Family; Visit Provider Emergency Medicine
DX: N93.9 Abnormal uterine and vaginal bleeding, unspecified (principal); N83.202 Unspecified ovarian cyst, left side
CPT/HCPCS: 76830; 76856

== ENCOUNTER 2024-12-03 15:37 | Emergency (ER) | payer MEDICAID, SELFPAY ==
[2024-12-03 15:38] VITALS: BP 104/67; PULSE 99; RESP 16; TEMP 37.1; O2SAT 98
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
== END 2024-12-03 16:47 | disposition home or self-care (01) ==
LOC: ER 17:02
PROVIDERS: Emergency Provider Physician Assistant; PCP Nurse Practitioner Family
DX: N83.202 Unspecified ovarian cyst, left side (principal); F17.210 Nicotine dependence, cigarettes, uncomplicated; F17.290 Nicotine dependence, other tobacco product, uncomplicated
CPT/HCPCS: 99282

== ENCOUNTER 2024-12-08 12:21 | Outpatient (REF) | payer MEDICAID, SELFPAY ==
--- NOTE | 2024-12-08 10:30 | ENDO_PTH ---
PATIENT: Jacqueline Cheema LOC: [facility] U#:[id number] AGE/SX: 24/F ROOM: RE12/08/[address]: María Morales DO : 2000 BED: DIS: 12/08/2024 SPEC #: [id number] RECD: 12/08/24 12:54 STATUS: SAURAV REQ #: [id number] JANIE: 12/08/24 10:[address]: María Morales DEPT: Surgical Specimen RECD BY: Juanita Peraza ENTERED: 12/08/24 12:54 SP TYPE: Endo OTHR DR: KARISSA ROBLEDO NP Tissues: 1 - ENDOCERVICAL BX/CURRETTE 2 - CERVICAL BIOPSY Procedures: GROSS AND MICRO LEVEL 4 Comments: [id number]
== END 2024-12-08 12:22 | disposition home or self-care (01) ==
LOC: LBN 12:21
PROVIDERS: PCP Nurse Practitioner Family; Visit Provider Obstetrics & Gynecology
DX: L98.5 Mucinosis of the skin (principal)
CPT/HCPCS: 88305